=== PATIENT | male | born 1965 | race Caucasian/White ===

== ENCOUNTER 2018-11-11 14:49 | Inpatient (IN) | payer MEDICARE, OTHER ==
[2018-11-11] MEDS ORDERED: SODIUM CHLORIDE 0.9% 1,000 ML IV STA (15:54)
[2018-11-11] MEDS ORDERED: ONDANSETRON ODT 4 MG TAB PO STA (16:24)
[2018-11-11] MEDS ORDERED: LORazepam 2 MG/ML INJ IM STA ×2 (16:25→17:33)
--- NOTE | 2018-11-11 16:28 | ED ---
General Adult HPI - General Chief complaint: Shortness of Breath Stated complaint: Not feeling well Time Seen by Provider: 11/11/18 15:53 Source: patient, family, EMS, Caregiver Mode of arrival: ambulatory Limitations: no limitations - History of Present Illness Initial comments: Dictation was produced using copygram dictation software. please excuse any grammatical, word or spelling errors. Chief Complaint: 53-year-old male with past medical history of down syndrome, irritable bowel syndrome, GERD presents with dyspnea and generalized weakness. History of Present Illness: She is 53-year-old male. He is here today with family members. He has history of Down syndrome. Currently resides with mother however she is not here today because of recent surgery. She is here with her standby guardian. Patient apparently began having symptoms on Sunday. He is having nausea vomiting and diarrhea. He was also found have a fever at that time. Over the following days he is fever improved and his symptoms slightly improved however he still has some diarrhea. Is found to not really been eating very well. Family reports that it's likely secondary to decreased appetite. Patient otherwise is calm. They are concerned because patient is a little bit more less active than usual. Patient is usually very resistant and has a lot of anxiety around strangers however they find that it's abnormal that patient is so comfortable with me. Reports that he has not had any vomiting episodes today. He still however has some mild diarrhea. The ROS documented in this emergency department record has been reviewed and confirmed by me. Those systems with pertinent positive or negative responses have been documented in the HPI. All other systems are other negative and/or noncontributory. PHYSICAL EXAM: General Impression: not in acute distress, alert and playful HEENT: Normocephalic atraumatic, extra-ocular movements intact, chronic defect to the left eye, mucous membranes moist. Cardiovascular: Heart regular rate and rhythm, S1&S2 audible, no murmurs, rubs or gallops Chest: Lungs clear to auscultation bilaterally, no rhonchi, no wheeze, no rales Abdomen: Bowel sounds present, abdomen soft, non-tender, non-distended, no organomegaly Musculoskeletal: Pulses present and equal in all extremities, no peripheral edema Motor: no focal deficits noted Neurological: CN II-XII grossly intact, no focal motor or sensory deficits noted Skin: Intact with no visualized rashes ED course: 53-year-old male past history of down syndrome, GERD, irritable bowel syndrome presents with generalized weakness, fatigue and resolved fever. He does however have some persistent diarrhea. Patient was a program on the weekdays. Scars from an ulcer has not been anyone at the program that has had similar symptoms. Rectal temperature was taken found be one of 103.6.Laboratory evaluation obtained. Patient is leukocytosis of 67.9, hemoglobin 11.1 with platelets of 1022. Metabolic panel was obtained showing mild hyponatremia 135. Rest of labs are grossly unremarkable. X-rays of the chest and abdomen shows patchy consolidation in the right lower lobe. Radiology reported cannot rule out diaphragmatic hernia.. Given these findings CT was obtained showing loculated right-sided hydropneumothorax. Findings were present in by edema. Abdominal ultrasound was obtained given that patient has having right upper quadrant abdominal pain. There is echogenic bile the gallbladder however no signs of acute cholecystitis. No other findings. Patient given broad-spectrum antibiotics. He is given vancomycin and cefepime. Patient required benzodiazepines for sedation because he becomes combative and won't pull out his intravenous lines. Patient hemodynamically stable at this time. Patient given intravenous fluids. There is concern of early sepsis. Discussed patient case with Dr. Ferguson and Dr. Moncada. We will place patient in the intensive care unit because he will need aggressive monitoring given his baseline agitated behavior. EKG interpretation: Ventricular rate 147,. Interval 120, Q 76, QTC 444, sinus tachycardia. No OR prolongation, no QTC prolongation, no ST or T-wave changes noted. - Related Data Home Medications Medication Instructions Recorded Confirmed Acetaminophen Tab [Tylenol Tab] 650 mg PO Q4H PRN 11/11/18 11/11/18 Allergies Allergy/AdvReac Type Severity Reaction Status Date / Time No Known Allergies Allergy Verified 11/11/18 15:31 Review of Systems ROS Statement: Those systems with pertinent positive or pertinent negative responses have been documented in the HPI. ROS Other: All systems not noted in ROS Statement are negative. Past Medical History Past Medical History: GERD/Reflux Additional Past Medical History / Comment(s): IBS History of Any Multi-Drug Resistant Organisms: None Reported Past Surgical History: Hernia Repair Past Psychological History: No Psychological Hx Reported Smoking Status: Never smoker Past Alcohol Use History: None Reported Past Drug Use History: None Reported General Exam Limitations: no limitations Course Vital Signs 11/11/18 11/11/18 11/11/18 16:36 16:56 17:16 Temperature 100.3 F H 103.6 F H Pulse Rate 144 H Respiratory 16 20 Rate Blood Pressure 100/72 O2 Sat by Pulse 85 L Oximetry Medical Decision Making - Lab Data Result diagrams: 11/11/18 17:00 11/11/18 17:00 Lab Results 11/11/18 11/11/18 11/11/18 Range/Units 17:00 17:00 17:00 WBC 67.9 H* (3.8-10.6) k/uL RBC 4.27 L (4.30-5.90) m/uL Hgb 11.1 L (13.0-17.5) gm/dL Hct 35.1 L (39.0-53.0) % MCV 82.3 (80.0-100.0) fL MCH 25.9 (25.0-35.0) pg MCHC 31.4 (31.0-37.0) g/dL RDW 16.4 H (11.5-15.5) % Plt Count 1022 H* (150-450) k/uL Neutrophils % (Manual) 95 % Band Neutrophils % 1 % Lymphocytes % (Manual) 3 % Monocytes % (Manual) 1 % Neutrophils # (Manual) 65.10 H (1.3-7.7) k/uL Lymphocytes # (Manual) 2.04 (1.0-4.8) k/uL Monocytes # (Manual) 0.68 (0-1.0) k/uL Nucleated RBCs 0 (0-0) /100 WBC Hypersegmented Neuts Present Hypochromasia Slight Anisocytosis Slight Target Cells Present Sodium 135 L (137-145) mmol/L Potassium 4.4 (3.5-5.1) mmol/L Chloride 100 (98-107) mmol/L Carbon Dioxide 24 (22-30) mmol/L Anion Gap 11 mmol/L BUN 36 H (9-20) mg/dL Creatinine 0.88 (0.66-1.25) mg/dL Est GFR (CKD-EPI)AfAm >90 (>60 ml/min/1.73 sqM) Est GFR (CKD-EPI)NonAf >90 (>60 ml/min/1.73 sqM) Glucose 136 H (74-99) mg/dL Plasma Lactic Acid Felipe 1.9 (0.7-2.0) mmol/L Calcium 8.0 L (8.4-10.2) mg/dL Total Bilirubin 0.5 (0.2-1.3) mg/dL AST 25 (17-59) U/L ALT 31 (21-72) U/L Alkaline Phosphatase 315 H (38-126) U/L Total Protein 6.7 (6.3-8.2) g/dL Albumin 2.8 L (3.5-5.0) g/dL Lipase 164 (23-300) U/L Disposition Clinical Impression: Empyema lung Disposition: ADMITTED IP TO THIS HOSP Condition: Critical Referrals: Justin Rizvi Jr, [Primary Care Provider] - 1-2 days Decision Time: 20:29
[2018-11-11] MEDS ORDERED: ACETAMINOPHEN TAB 500 MG TAB PO STA (17:12)
[2018-11-11 17:17] LABS: Anisocytosis Slight; HCT 35.1 % (39.0-53.0); HGB 11.1 gm/dL (13.0-17.5); Hypochromasia Slight; MCH 25.9 pg (25.0-35.0); MCHC 31.4 g/dL (31.0-37.0); MCV 82.3 fL (80.0-100.0); Mean Platelet Volume 7.8; RBC 4.27 m/uL (4.30-5.90); RDW 16.4 % (11.5-15.5)
[2018-11-11 17:24] LABS: Platelet Count 1022 k/uL (150-450); WBC 67.9 k/uL (3.8-10.6)
[2018-11-11 17:25] LABS: ALT 31 U/L (21-72); AST 25 U/L (17-59); African American GFR (CKD) >90 (>60 ml/min/1.73 sqM); Albumin 2.8 g/dL (3.5-5.0); Alkaline Phosphatase 315 U/L (38-126); Anion Gap 11 mmol/L; Blood Urea Nitrogen 36 mg/dL (9-20); Carbon Dioxide 24 mmol/L (22-30); Chloride 100 mmol/L (98-107); Glucose 136 mg/dL (74-99); Potassium 4.4 mmol/L (3.5-5.1); Sodium 135 mmol/L (137-145); Total Bilirubin 0.5 mg/dL (0.2-1.3); Total Protein 6.7 g/dL (6.3-8.2)
[2018-11-11 17:38] LABS: Band Neutrophils % 1 %; Lymphocytes # (M) 2.04 k/uL (1.0-4.8); Monocytes # (M) 0.68 k/uL (0-1.0); Neutrophils % (M) 95 %; Nucleated Red Blood Cells 0 /100 WBC (0-0); Total Cells Counted 200
[2018-11-11 17:39] LABS: Hypersegmented Neutrophils Present; Target Cells Present
--- NOTE | 2018-11-11 17:48 | XR ---
EXAMINATION TYPE: XR abdomen acute w cxr DATE OF EXAM: 11/11/2018 COMPARISON: 09/29/2009 HISTORY: Lethargy TECHNIQUE: Supine, upright, and left side down lateral decubitus views of the abdomen are obtained. FINDINGS: There is right pleural effusion and patchy consolidation in the right lower lobe. Left lung is relati vely clear. There is also peritracheal opacity in the right upper lobe. There is no sign of intestinal obstruction or pneumoperitoneum. Fecal pattern is normal. IMPRESSION: Right pleural effusion and right pulmonary consolidation. No acute abnormality seen within the abdome n. Diaphragmatic hernia on the right side is not excluded.
[2018-11-11] MEDS ORDERED: VANCOMYCIN IV PER PHARMACY 1 EACH MISC MISCELLANE PRN (18:24)
[2018-11-11] MEDS ORDERED: MIDAZOLAM (PF) 2 MG/2 ML VIAL IV ONE (18:24)
[2018-11-11] MEDS ORDERED: CEFEPIME 2 GM in SODIUM CHLORIDE 0.9% 100 ML IVPB STA (18:26)
[2018-11-11] MEDS ORDERED: VANCOMYCIN 1,000 MG in SODIUM CHLORIDE 0.9% 250 ML IVPB ONE (18:45)
--- NOTE | 2018-11-11 19:17 | CT ---
EXAMINATION TYPE: CT ChestAbdPelvis w con DATE OF EXAM: 11/11/2018 COMPARISON: None HISTORY: Cough and fever CT DLP: mGycm Automated exposure control for dose reduction was used. CONTRAST: CT scan of the chest, abdomen and pelvis is performed and , patient injected with mL of . The contras t was Isovue 100 mL. FINDINGS: There is a large right-sided loculated pleural effusion. There is extensive consolidation and atelect asis in the right lung. There is air fluid levels in the pleural fluid posteriorly. I do not see a co mmunication with the abdomen to suggest a diaphragmatic hernia. The left lung is fairly clear. Heart size is normal. There is no mediastinal adenopathy. There are no definite hilar masses. Liver spleen stomach appear normal. Bile ducts are not dilated. There is no sign of pancreatic mass. Gallbladder appears normal. There is no adrenal mass. Kidneys show satisfactory contrast opacification. There is no hydronephrosi s. Bladder distends smoothly. There is right inguinal hernia that contains fat. There is no free flui d in the pelvis. There is no sign of a bowel obstruction. There is no evidence of free air. There is no mesenteric edema. There is no ascites. There is no retroperitoneal adenopathy. There are some spon dylotic changes in the thoracic and lumbar spine. I see no compression fracture. I see no bony destru ctive process. IMPRESSION: There is a loculated right-sided hydropneumothorax. Extensive consolidation and atelectas is in the right lung. No evidence of diaphragmatic hernia. This could relate to chronic empyema. Bron chopleural fistula is possible. No acute abnormality within the abdomen pelvis.
--- NOTE | 2018-11-11 20:25 | US ---
EXAMINATION TYPE: US abdomen complete DATE OF EXAM: 11/11/2018 COMPARISON: 09/29/2009 CLINICAL HISTORY: Pain. Pain. Pt unable to give hx. IBS. GERD. EXAM MEASUREMENTS: Liver Length: 16.1 cm Gallbladder Wall: 0.26 cm CBD: 0.48 cm Spleen: 7.7 cm Right Kidney: 9.5 x 5.4 x 4.2 cm Left Kidney: 9.0 x 4.1 x 5.0 cm Very limited study due to constant patient movement. Unable to take and hold breaths in. Unable to stay in position for exam. Pancreas: limited Liver: appears wnl Gallbladder: internal echoes seen in gallbladder Evidence for sonographic Ralph's sign: no CBD: appears wnl Spleen: limited evaluation due to movement Right Kidney: No hydronephrosis or masses seen Left Kidney: limited evaluation Upper IVC: appears wnl Abd Aorta: limited evaluation. Prox aorta appears wnl. There is no sign of ascites. IMPRESSION: There is some echogenic bile in the gallbladder. No dilated ducts. No gallstones seen.
[2018-11-11] MEDS ORDERED: NALOXONE 0.4 MG/ML 1 ML VIAL IV PRN (22:05)
[2018-11-11 23:35] LABS: Glucose,Whole Blood 102 mg/dL (75-99)
[2018-11-11] MEDS: SODIUM CHLORIDE 0.9% 1,000 ML IV SCH (23:43)
[2018-11-12] MEDS: ACETAMINOPHEN TAB 325 MG TAB PO PRN (04:17)
[2018-11-12] MEDS: HEPARIN SODIUM,PORCINE 5,000 UNIT/ML 1 ML VIAL SQ SCH ×3 (04:17→15:06)
[2018-11-12 05:41] LABS: Anisocytosis Slight; Basophils # (A) 0.1 k/uL (0-0.2); Basophils % (A) 0 %; Eosinophils % (A) 0 %; HCT 32.5 % (39.0-53.0); HGB 10.1 gm/dL (13.0-17.5); Hypochromasia Slight; Lymphocytes # (A) 3.5 k/uL (1.0-4.8); Lymphocytes % (A) 6 %; MCH 25.8 pg (25.0-35.0); MCHC 30.9 g/dL (31.0-37.0); MCV 83.6 fL (80.0-100.0); Mean Platelet Volume 7.7; Monocytes # (A) 1.7 k/uL (0-1.0); Monocytes % (A) 3 %; Neutrophils # (A) 54.3 k/uL (1.3-7.7); Neutrophils % (A) 91 %; Platelet Count 981 k/uL (150-450); RBC 3.89 m/uL (4.30-5.90); RDW 16.5 % (11.5-15.5)
[2018-11-12 05:58] LABS: African American GFR (CKD) >90 (>60 ml/min/1.73 sqM); Anion Gap 8 mmol/L; Blood Urea Nitrogen 28 mg/dL (9-20); Carbon Dioxide 25 mmol/L (22-30); Chloride 103 mmol/L (98-107); Glucose 69 mg/dL (74-99); Magnesium 2.7 mg/dL (1.6-2.3); Phosphorus 3.7 mg/dL (2.5-4.5); Sodium 136 mmol/L (137-145)
[2018-11-12 06:43] LABS: Glucose,Whole Blood 96 mg/dL (75-99)
--- NOTE | 2018-11-12 08:02 | P.CNPUL ---
History of Present Illness Consult date: 11/12/18 Reason for consult: pneumonia, pleural effusion History of present illness: This is a 53-year-old male patient, history of Down syndrome, history of autistic behavior, legally blind, resides with his mother and his brother and the patient has a caregiver. The patient also has a legal guardian. The patient has been having increased cough and some low-grade fever over the past 3 weeks. He was also having some nausea, emesis and diarrhea. He is fever was on and off and he had not been eating well. It's hard to obtain any medical information from the patient as the patient is nonverbal. He was apparently noted to be more lethargic and diminished appetite. He came into the emergency department yesterday. He was found to have an extensive consolidation of the right lung suggestive of pneumonia. Following that the patient a CAT scan of the chest that showed a moderate-sized right-sided loculated pleural effusion which was anterior and there is also some loculated pleural effusion posteriorly. There is some air-fluid levels in the pleural fluid posteriorly. There was also extensive consolidation of the right lung with some atelectatic changes in lung bases. No evidence of any diaphragmatic hernia. Empyema was suspected. No evidence of any mediastinal lymphadenopathy with compression fracture. The patient white cell count was at 60 and platelet count was also elevated at thousand 22. Overnight, the patient was given a combination of cefepime and vancomycin. He stayed in the intensive care unit. Unfortunately w as very uncooperative and this is obviously related to his underlying mental disability and the patient has not been wearing his oxygen. He will lay down on his belly. No signs of any significant respiratory distress. He looks still lethargic, uncooperative, and that is he gets agitated and he screams and yells at times. No obvious cough. No hemodynamic instability. He is on IV fluids and received a total of 2 L and currently is on a maintenance of 0.9 at the rate of 80 mL an hour. He is producing urine output. He is incontinent. I talked to the caregiver and I was told that he has a full CODE STATUS which is quite reasonable based on his current situation. In any rate, the patient is currently on broad-spectrum antibiotics. A consultation was placed for interventional radiology and thoracic surgery regarding this loculated pleural effusion. I'm not optimistic that anything surgical to be done for this patient especially with his underlying significant mental disability and inability to cooperate with treatment Review of Systems ROS unobtainable: due to mental status (The patient is unable to communicate. Most of the positive findings were mentioned above. The patient seems to be quite anxious and restless. The patient has obvious mental disability related to his underlying Down syndrome. He has been nonverbal. According to the caregiver has been able to swallow well without any major difficulties. No reported aspiration. No other major medical issues on him. He doesn't take any medications at home. Right) Constitutional: Reports weakness Past Medical History Past Medical History: GERD/Reflux Additional Past Medical History / Comment(s): IBS, Down syndrome, mental retardation/autism, acid reflux, legally blind, previous history of hernia repair History of Any Multi-Drug Resistant Organisms: None Reported Past Surgical History: Hernia Repair Past Anesthesia/Blood Transfusion Reactions: No Reported Reaction Smoking Status: Never smoker - Past Family History Mother Family Medical History: Diabetes Mellitus Father Family Medical History: Cancer Additional Family Medical History / Comment(s): lung cancer Medications and Allergies Home Medications Medication Instructions Recorded Confirmed Type Acetaminophen Tab [Tylenol Tab] 650 mg PO Q4H PRN 11/11/18 11/11/18 History Allergies Allergy/AdvReac Type Severity Reaction Status Date / Time No Known Allergies Allergy Verified 11/11/18 15:31 Physical Exam Vitals: Vital Signs Temp Pulse Resp BP Pulse Ox 11/12/18 07:00 121 H 26 H 96/74 91 L 11/12/18 06:00 99.6 F 125 H 82 H 92/58 90 L 11/12/18 05:00 121 H 28 H 103/62 92 L 11/12/18 04:00 101 F H 120 H 26 H 96/63 95 11/12/18 03:00 121 H 24 135/78 91 L 11/12/18 02:00 126 H 24 93/56 91 L 11/12/18 01:30 112 H 22 101/61 92 L 11/12/18 01:00 111 H 22 105/67 91 L 11/12/18 00:30 113 H 14 98/62 93 L 11/12/18 00:00 98.5 F 110 H 18 102/64 92 L 11/11/18 23:40 111 H 12 102/64 90 L 11/11/18 23:30 107 H 23 97/62 93 L 11/11/18 23:20 111 H 13 108/60 87 L 11/11/18 22:35 110 H 20 101/67 91 L 11/11/18 21:27 100.3 F H 11/11/18 20:49 104 H 16 92/58 90 L 11/11/18 17:16 103.6 F H 11/11/18 16:56 100.3 F H 144 H 20 100/72 85 L 11/11/18 16:36 16 Intake and Output 11/11/18 11/12/18 11/12/18 22:59 06:59 14:59 Intake Total 810 80 Output Total 45 Balance 765 80 Intake: IV 810 80 Sodium Chloride 0.9% 1, 560 80 000 ml @ 80 mls/hr IV . [id number] [facility] Rx#:[id number] Vancomycin 1,000 mg In 250 Sodium Chloride 0.9% 250 ml @ 125 mls/hr IVPB ONCE ONE Rx#:[id number] Output: Urine 45 Other: Voiding Method Incontinent # Voids 1 Weight 58.967 kg 46.6 kg Gen. appearance the patient has typical features of Down syndrome. Unfortunately doesn't state still in bed. He is quite restless. He lays down w ith his belly and a face into the pillow. Unfortunately can't get them today usual sleeping position on his back. The patient has been unable to keep his oxygen mask or nasal cannula. Head exam was generally normal. There was no scleral icterus or corneal arcus. Mucous membranes were moist. The patient has typical Down's features. Neck was supple and without jugular venous distension, thyromegaly, or carotid bruits. Carotids were easily palpable bilaterally. There was no adenopathy. The patient has a Mallampati class IV. Mucous membranes are relatively dry. Lungs are diminished bilaterally right more than left. No significant rhonchi or wheeze at this point in time. Breath sounds are quite diminished. Cardiac exam revealed the PMI to be normally situated and sized. The rhythm was regular and no extrasystoles were noted during several minutes of auscultation. The first and second heart sounds were normal and physiologic splitting of the second heart sound was noted. There were no murmurs, rubs, clicks, or gallops. Abdominal exam revealed normal bowel sounds. The abdomen was soft, non-tender, and without masses, organomegaly, or appreciable enlargement of the abdominal aorta. Extremities revealed tiny hands and feet. The skin and scaly. Pulses are diminished at the present all 4 extremities. No open wounds or sores. No cyanosis. No clubbing. Neurologically, the patient is moving all 4 extremities. There is mental retardation related to history of Down syndrome. Results - Laboratory Findings CBC and BMP: 11/12/18 04:34 11/12/18 04:34 Abnormal lab findings: Abnormal Labs 11/11/18 11/11/18 11/11/18 17:00 17:00 23:33 WBC 67.9 H* RBC 4.27 L Hgb 11.1 L Hct 35.1 L MCHC RDW 16.4 H Plt Count 1022 H* Neutrophils # Neutrophils # (Manual) 65.10 H Monocytes # Sodium 135 L BUN 36 H Glucose 136 H POC Glucose (mg/dL) 102 H Calcium 8.0 L Magnesium Alkaline Phosphatase 315 H Albumin 2.8 L 11/12/18 11/12/18 04:34 04:34 WBC 60.0 H* RBC 3.89 L Hgb 10.1 L Hct 32.5 L MCHC 30.9 L RDW 16.5 H Plt Count 981 H Neutrophils # 54.3 H Neutrophils # (Manual) Monocytes # 1.7 H Sodium 136 L BUN 28 H Glucose 69 L POC Glucose (mg/dL) Calcium 8.0 L Magnesium 2.7 H Alkaline Phosphatase Albumin - Diagnostic Findings Chest x-ray: image reviewed CT scan - chest: image reviewed Assessment and Plan Plan: 1 extensive right lung pneumonia with a complicated parapneumonic effusion/early empyema. The patient has loculated pleural fluid anteriorly and posteriorly and the fluid collections are not communicating. Also, there may be some air-fluid level formation posteriorly. Consider aspiration. Consider gram-negative pneumonia. Consider pneumococcal pneumonia. 2 acute hypoxic respiratory failure secondary to above. The patient refuses to wear oxygen supplementation 3 acute leukocytosis secondary to above 4 acute thrombocytosis secondary to above 5 Down syndrome 6 mental retardation 7 episodic fever secondary to above 8 diminished level of consciousness secondary to above 9. Legal blindness with cataracts in both eyes 10 full CODE STATUS with a presence of a legal guardian and a caregiver. Plan This is a complicated situation. Taking care of this patient is to be quite complicated as the patient does not follow any commands and is quite restless and uncooperative declined to wear any oxygen and pulls on lines and tubings. He'll be given Ativan on a when necessary basis to control his restlessness and agitation. Meanwhile, we'll keep him and accommodation Zosyn and vancomycin. We'll discuss the findings with thoracic surgery and interventional radiology. Obviously the patient is a poor candidate for any surgical intervention regarding this loculated pleural effusion. Another option would be doing a percutaneous drainage of the pleural fluid specially the 1 is collecting anteriorly over the anterior right chest and analyze the fluid and see if there is any possible any other bacterial growth. High likelihood that this is a complicated parapneumonic effusion/empyema. Continue IV fluids at the rate of 80 mL an hour. Ativan on a when necessary basis. Heparin subcu for DVT prophylaxis. We will allow some soft diet today and watch his feeding patterns. We'll discuss with a guardian and try to establish mucosal status of the patient is not a good candidate for intubation, or any form of long-term mechanical ventilation if needed. We'll monitor the white count. We'll monitor the platelet counts. Tylenol for fever. We'll continue to follow.
[2018-11-12] MEDS: PIPERACILLIN-TAZOBACTAM 3.375 GM in SODIUM CHLORIDE 0.9% 100 ML IVPB SCH ×2 (08:35→15:07)
[2018-11-12] MEDS: LORazepam 2 MG/ML INJ IV PRN ×4 (08:35→21:44)
[2018-11-12] MEDS: PANTOPRAZOLE 40 MG/10 ML VIAL IV SCH (08:35)
--- NOTE | 2018-11-12 09:46 | XR ---
EXAMINATION TYPE: XR chest 1V DATE OF EXAM: 11/12/2018 COMPARISON: CT of the chest abdomen and pelvis dated 11/11/2018 HISTORY: Empyema TECHNIQUE: Single frontal view of the chest is obtained. FINDINGS: Redemonstration of multiloculated moderate right pleural effusion and pneumothorax with co nsolidative process in the right middle and lower lobes. A few strandy densities at the left lung bas e may related to atelectasis or infiltrate. Cardiac silhouette is normal in size. No left-sided pneum othorax. Osseous structures appear grossly intact. IMPRESSION: Redemonstration of left-sided hydropneumothorax appearing similar to CT of the chest barbara ed 11/11/2018. Right middle lower lobe consolidation likely related to pneumonia. Left basilar opacities may be related to atelectasis or infiltrate.
[2018-11-12] MEDS: VANCOMYCIN 1,000 MG in SODIUM CHLORIDE 0.9% 250 ML IVPB SCH ×2 (10:26→22:09)
[2018-11-12] MEDS ORDERED: MIDAZOLAM 2 MG/2 ML VIAL ONE (10:28)
[2018-11-12] MEDS ORDERED: KETAMINE 10 MG/ML 20 ML VIAL ONE (10:28)
[2018-11-12 10:31] LABS: Total Protein 6.3 g/dL (6.3-8.2)
[2018-11-12] MEDS: SODIUM CHLORIDE 0.9% 1,000 ML IV SCH (11:33)
--- NOTE | 2018-11-12 11:39 | US ---
Ultrasound thoracentesis HISTORY: Loculated pleural effusion, leukocytosis Maximal barrier technique is utilized. Ultrasound was used to sterile technique. Ultrasound images (3 )obtained verifying use. Correlation to CT chest 11/11/2018 Anterior right chest was evaluated with ultrasound, loculated fluid collection is identified. The ski n overlying a suitable path to the fluid was localized and the overlying skin prepped and draped. Lid ocaine used for local anesthesia. 21-gauge was advanced under direct ultrasound guidance into the flu id collection. Minimal fluid obtained. Second pass was performed, total approximately 2 cc of serous fluid obtained and submitted for laboratory analysis. Following the procedure hemostasis achieved. No immediate complication. Patient remained in stable condition. Post procedure chest x-rays pending. P ulysses remained in the care of anesthesia during the procedure. IMPRESSION: Status post ultrasound guided thoracentesis for diagnostic purposes. This procedure perfo rmed by the undersigned. Loculated pleural effusion.
--- NOTE | 2018-11-12 12:58 | XR ---
EXAMINATION TYPE: XR chest 1V portable DATE OF EXAM: 11/12/2018 COMPARISON: Prior chest x-ray 11/12/2018 and earlier time HISTORY: Post right thoracentesis TECHNIQUE: Single frontal view of the chest is obtained. FINDINGS: No interval change. IMPRESSION: No evident complication status post thoracentesis on the right, in patient's loculated r ight pleural effusion
[2018-11-12 14:03] LABS: Appearance,BF Hazy; Color,BF Yellow; Nucleated Cells, Body Fluid 540 /uL
[2018-11-12 14:04] LABS: RBC, Body Fluid 3490 /uL
[2018-11-12 14:10] LABS: Mononuclear WBC,Body Fluid 4 %; Polynuclear WBC,Body Fluid 96 %; Total Cells Counted,Body Fluid 100
[2018-11-12 15:47] LABS: Appearance,Urine Turbid (Clear); Bacteria,Urine Rare /hpf; Bilirubin,Urine Negative (Negative); Blood,Urine Negative (Negative); Color,Urine Yellow; Glucose,Urine (UA) Negative (Negative); Ketones,Urine Negative (Negative); Leukocyte Esterase,Urine Negative (Negative); Mucus,Urine Rare /hpf; Nitrite,Urine Negative (Negative); PH, Urine 5.5 (5.0-8.0); Protein,Urine Trace (Negative); Specific Gravity,Urine 1.031 (1.001-1.035); Uric Acid Crystals,Urine Many /hpf; Urobilinogen,Urine <2.0 mg/dL (<2.0)
--- NOTE | 2018-11-12 16:22 | P.HPIM ---
History of Present Illness H&P Date: 11/12/18 Chief Complaint: Pneumonia, This is the 53-year-old gentleman with autism/Down syndrome, legally blind presented to the ER with increased lethargy,dyspnea, increased cough, nausea vomiting, diarrhea, reported fevers, not eating well, right upper quadrant abdominal pain for about the last 3 weeks. No reported aspiration. T-max 101, WBC 60, platelets 1022, hemoglobin 11.1, alk phos 315. Abdominal series reported no intestinal obstruction or pneumoperitoneum, normal fecal pattern, right pleural effusion, right pulmonary consolidation, possible right sided diaphragmatic hernia. Abdominal ultrasound limited study, reported echogenic bile with no dilated ducts, no gallstones . 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 EKG reported sinus tachycardia. Chest x-ray reports redemonstration of left-sided hydropneumothorax,Similar to CT, right middle lower lobe consolidation likely related to pneumonia, left basilar opacity possibly related to atelectasis or infiltrate. Initiated on IV fluids, vancomycin and cefepime. Unable to keep oxygen on, currently maintaining O2 sats in the low 90s on room air. Ativan administered for anxiety/agitation. Admitted to ICU. If the patient is being obtained from staff, chart as patient nonverbal. Pulmonary and interventional radiology consulted. Review of Systems ROS ;Unable to obtain secondary to patient's mental status, nonverbal, autistic, anxious. Past Medical History Past Medical History: GERD/Reflux Additional Past Medical History / Comment(s): IBS History of Any Multi-Drug Resistant Organisms: None Reported Past Surgical History: Hernia Repair Past Anesthesia/Blood Transfusion Reactions: No Reported Reaction Smoking Status: Never smoker - Past Family History Mother Family Medical History: Diabetes Mellitus Father Family Medical History: Cancer Additional Family Medical History / Comment(s): lung cancer Medications and Allergies Home Medications Medication Instructions Recorded Confirmed Type Acetaminophen Tab [Tylenol Tab] 650 mg PO Q4H PRN 11/11/18 11/11/18 History Allergies Allergy/AdvReac Type Severity Reaction Status Date / Time No Known Allergies Allergy Verified 11/11/18 15:31 Physical Exam Vitals: Vital Signs Temp Pulse Resp BP Pulse Ox 11/12/18 07:00 121 H 26 H 96/74 91 L 11/12/18 06:00 99.6 F 125 H 82 H 92/58 90 L 11/12/18 05:00 121 H 28 H 103/62 92 L 11/12/18 04:00 101 F H 120 H 26 H 96/63 95 11/12/18 03:00 121 H 24 135/78 91 L 11/12/18 02:00 126 H 24 93/56 91 L 11/12/18 01:30 112 H 22 101/61 92 L 11/12/18 01:00 111 H 22 105/67 91 L 11/12/18 00:30 113 H 14 98/62 93 L 11/12/18 00:00 98.5 F 110 H 18 102/64 92 L 11/11/18 23:40 111 H 12 102/64 90 L 11/11/18 23:30 107 H 23 97/62 93 L 11/11/18 23:20 111 H 13 108/60 87 L 11/11/18 22:35 110 H 20 101/67 91 L 11/11/18 21:27 100.3 F H 11/11/18 20:49 104 H 16 92/58 90 L 11/11/18 17:16 103.6 F H 11/11/18 16:56 100.3 F H 144 H 20 100/72 85 L 11/11/18 16:36 16 Intake and Output 11/11/18 11/12/18 11/12/18 22:59 06:59 14:59 Intake Total 810 80 Output Total 45 Balance 765 80 Intake: IV 810 80 Sodium Chloride 0.9% 1, 560 80 000 ml @ 80 mls/hr IV . [id number] [facility] Rx#:[id number] Vancomycin 1,000 mg In 250 Sodium Chloride 0.9% 250 ml @ 125 mls/hr IVPB ONCE ONE Rx#:[id number] Output: Urine 45 Other: Voiding Method Incontinent # Voids 1 Weight 58.967 kg 46.6 kg PHYSICAL EXAM: VITAL SIGNS: As above GENERAL: 53-year-old gentleman with Down syndrome ,Sitting up in bed, alert, restless, face. Face burried into pillow, unable to keep his oxygen on. HEENT: Conjunctivae normal. No scleral icterus. Mucous membranes moist NECK: Supple, No JVD. No thyroid enlargement. No LNs, no adenopathy CARDIOVASCULAR: S1, S2 regular. No murmur RESPIRATION: Breath sounds diminished in the bases, right greater than left. No rhonchi or crackles. No wheezing. ABDOMEN: Soft, nontender . No guarding. no masses palpable. Bowel sounds heard. LEGS: Dry, scaly, No edema. no swelling, no cyanosis, no clubbing,pulses diminished. PSYCHIATRY: Alert and oriented X3, mood and affect normal. NERVOUS SYSTEM: Down syndrome, moving all 4 extremities Skin: no lesions, no rash Results CBC & Chem 7: 11/12/18 04:34 11/12/18 04:34 Labs: Abnormal Lab Results - Last 24 Hours (Table) 11/11/18 11/11/18 11/11/18 Range/Units 17:00 17:00 23:33 WBC 67.9 H* (3.8-10.6) k/uL RBC 4.27 L (4.30-5.90) m/uL Hgb 11.1 L (13.0-17.5) gm/dL Hct 35.1 L (39.0-53.0) % MCHC (31.0-37.0) g/dL RDW 16.4 H (11.5-15.5) % Plt Count 1022 H* (150-450) k/uL Neutrophils # (1.3-7.7) k/uL Neutrophils # (Manual) 65.10 H (1.3-7.7) k/uL Monocytes # (0-1.0) k/uL Sodium 135 L (137-145) mmol/L BUN 36 H (9-20) mg/dL Glucose 136 H (74-99) mg/dL POC Glucose (mg/dL) 102 H (75-99) mg/dL Calcium 8.0 L (8.4-10.2) mg/dL Magnesium (1.6-2.3) mg/dL Alkaline Phosphatase 315 H (38-126) U/L Albumin 2.8 L (3.5-5.0) g/dL 11/12/18 11/12/18 Range/Units 04:34 04:34 WBC 60.0 H* (3.8-10.6) k/uL RBC 3.89 L (4.30-5.90) m/uL Hgb 10.1 L (13.0-17.5) gm/dL Hct 32.5 L (39.0-53.0) % MCHC 30.9 L (31.0-37.0) g/dL RDW 16.5 H (11.5-15.5) % Plt Count 981 H (150-450) k/uL Neutrophils # 54.3 H (1.3-7.7) k/uL Neutrophils # (Manual) (1.3-7.7) k/uL Monocytes # 1.7 H (0-1.0) k/uL Sodium 136 L (137-145) mmol/L BUN 28 H (9-20) mg/dL Glucose 69 L (74-99) mg/dL POC Glucose (mg/dL) (75-99) mg/dL Calcium 8.0 L (8.4-10.2) mg/dL Magnesium 2.7 H (1.6-2.3) mg/dL Alkaline Phosphatase (38-126) U/L Albumin (3.5-5.0) g/dL Thrombosis Risk Factor Assmnt - Choose All That Apply Each Factor Represents 1 point: Age 41-60 years, Hx of IBD, Serious lung disease incl. pneumonia (< 1month) Other Risk Factors: No Other congenital or acquired thrombophilia - If yes, enter type in comment: No Thrombosis Risk Factor Assessment Total Risk Factor Score: 3 Thrombosis Risk Factor Assessment Level: Moderate Risk Assessment and Plan Assessment: -Extensive right lung pneumonia, parapneumonic effusion, empyema,loculated right-sided hydropneumothorax. Possible aspiration, possible gram-negative pneumonia, possible parapneumonic -Acute hypoxic respiratory failure secondary to the above -Fevers, change in mental status, acute metabolic encephalopathy, secondary to the above -Leukocytosis secondary to the above -Thrombocytosis secondary to the above -Down syndrome, autistism -Legally blind -IBS -Gastroesophageal reflux disease -History of hernia repair Plan: Continue on current medication regime ,monitoring and symptomatic treatment. Maintain IV fluid hydration and IV antibiotics of Zosyn and vanco mycin. Cultures ordered/ pending.Tylenol for pain and fever. Strict aspiration precautions. Heparin subcu for DVT prophylaxis. Interventional radiology consulted, recommendations pending. Close monitoring of coag's. Patient has a legal guardian. The impression and plan of care has been dictated as directed. : I performed a history and examination of this patient, discussed the same with the dictator. I agree with the dictator's note ,documented as a scribe. Any additional findings or plans will be noted. Time taken: 35 minutes
[2018-11-12] MEDS ORDERED: HALOPERIDOL LACTATE 5 MG/ML 1 ML VIAL IVP PRN (17:20)
[2018-11-12] MEDS ORDERED: methylPREDNISolone SOD SUCCI 125 MG/2 ML VIAL IV STA (20:41)
[2018-11-12] MEDS: IPRATROPIUM-ALBUTEROL 3 ML NEB INHALATION SCH (20:54)
[2018-11-13] MEDS: PIPERACILLIN-TAZOBACTAM 3.375 GM in SODIUM CHLORIDE 0.9% 100 ML IVPB SCH ×3 (00:42→17:20)
[2018-11-13] MEDS: HEPARIN SODIUM,PORCINE 5,000 UNIT/ML 1 ML VIAL SQ SCH ×3 (00:43→17:14)
[2018-11-13] MEDS: SODIUM CHLORIDE 0.9% 1,000 ML IV SCH ×2 (05:04→19:09)
[2018-11-13] MEDS ORDERED: VANCOMYCIN TROUGH DUE 1 EACH MISC MISCELLANE ONE (08:00)
[2018-11-13 08:09] LABS: Anisocytosis Slight; HCT 30.1 % (39.0-53.0); HGB 8.9 gm/dL (13.0-17.5); Hypochromasia Marked; MCH 25.3 pg (25.0-35.0); MCHC 29.7 g/dL (31.0-37.0); MCV 85.1 fL (80.0-100.0); Platelet Count 892 k/uL (150-450); Poikilocytosis Slight; RBC 3.54 m/uL (4.30-5.90); RDW 16.2 % (11.5-15.5)
[2018-11-13 08:17] LABS: African American GFR (CKD) >90 (>60 ml/min/1.73 sqM); Anion Gap 8 mmol/L; Blood Urea Nitrogen 19 mg/dL (9-20); Calcium 7.3 mg/dL (8.4-10.2); Carbon Dioxide 23 mmol/L (22-30); Chloride 111 mmol/L (98-107); Glucose 150 mg/dL (74-99); Potassium 4.5 mmol/L (3.5-5.1); Sodium 142 mmol/L (137-145)
[2018-11-13 08:24] LABS: Lymphocytes # (M) 2.82 k/uL (1.0-4.8); Monocytes # (M) 1.41 k/uL (0-1.0); Neutrophils % (M) 92 %; Nucleated Red Blood Cells 0 /100 WBC (0-0); Total Cells Counted 200
[2018-11-13 08:25] LABS: Large Platelets Present
[2018-11-13] MEDS: IPRATROPIUM-ALBUTEROL 3 ML NEB INHALATION SCH ×4 (08:31→20:00)
--- NOTE | 2018-11-13 08:53 | XR ---
EXAMINATION TYPE: XR chest 1V DATE OF EXAM: 11/13/2018 COMPARISON: 11/12/2018 HISTORY: Empyema TECHNIQUE: Single frontal view of the chest is obtained. FINDINGS: Mild improvement in aeration of the right lung with multiloculated pneumothorax in the inf erior and medial right lower lung zone. Persistent consolidation in the mid and right lower lung. Los s of the right hemidiaphragm. Loculated pleural fluid is again seen along the medial right upper lung zone. Strandy and patchy densities are again seen at the left lung base. Cardiac silhouette and pulm onary vascularity are within normal limits. Osseous structures are grossly intact. IMPRESSION: Mildly improving aeration in the right lung, which may be related to recent thoracentesis. However, t here remains consolidation and hydropneumothorax in the right chest which was demonstrated on CT date d 11/11/2018. Left basilar opacities may be related to atelectasis or infiltrate.
[2018-11-13] MEDS: PANTOPRAZOLE 40 MG/10 ML VIAL IV SCH (09:27)
[2018-11-13] MEDS: VANCOMYCIN 1,000 MG in SODIUM CHLORIDE 0.9% 250 ML IVPB SCH ×2 (09:54→17:19)
--- NOTE | 2018-11-13 14:18 | P.PN ---
Subjective Progress Note Date: 11/13/18 This is the 53-year-old gentleman with autism/Down syndrome, legally blind presented to the ER with increased lethargy,dyspnea, increased cough, nausea vomiting, diarrhea, reported fevers, not eating well, right upper quadrant abdominal pain for about the last 3 weeks. No reported aspiration. T-max 101, WB C 60, platelets 1022, hemoglobin 11.1, alk phos 315. Abdominal series reported no intestinal obstruction or pneumoperitoneum, normal fecal pattern, right pleural effusion, right pulmonary consolidation, possible right sided diaphragmatic hernia. Abdominal ultrasound limited study, reported echogenic bile with no dilated ducts, no gallstones . 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 EKG reported sinus tachycardia. Chest x-ray reports redemonstration of left-sided hydropneumothorax,Similar to CT, right middle lower lobe consolidation likely related to pneumonia, left basilar opacity possibly related to atelectasis or infiltrate. Initiated on IV fluids, vancomycin and cefepime. Unable to keep oxygen on, currently maintaining O2 sats in the low 90s on room air. Ativan administered for anxiety/agitation. Admitted to ICU. If the patient is being obtained from staff, chart as patient nonverbal. Pulmonary and interventional radiology consulted. 11/13/2018 Yesterday underwent diagnostic ultrasound-guided thoracentesis, minimal fluid obtained, cultures sent/pending. Tolerated procedure well. Maintained on vancomycin and Zosyn, currently afebrile, T-max 100, WBC decreased to 47. Respiratory rate with significant coughing spells, followed by agitation, which have improved this morning. Chest x-ray this morning reporting mild improving aeration of the right lung, right chest consolidation / hydropneumothorax persists, and left basilar opacities, possible atelectasis versus infiltrate. Hemoglobin 8.9. Desats with pulling off mask.Caregiver at bedside around the clock, attempting to facilitate patient receiving O2 via nonrebreather, maintaining sats in the low 90s. Less tachycardic today. More calm this morning, eating well without difficulty. No nausea vomiting or diarrhea. Objective - Vital Signs Vital signs: Vital Signs Temp 97.9 F 11/13/18 06:12 Pulse 98 11/13/18 08:44 Resp 26 H 11/13/18 07:00 BP 124/79 11/13/18 07:00 Pulse Ox 98 11/13/18 07:00 Intake & Output 11/12/18 11/13/18 11/13/18 18:59 06:59 18:59 Intake Total 1385 1335 80 Balance 1385 1335 80 Weight 44.6 kg Intake: IV 1385 1335 80 Piperacillin-Tazobactam 3 175 125 .375 gm In Sodium Chloride 0.9% 100 ml @ 25 mls/hr IVPB Q8HR [facility] Rx# :[id number] Sodium Chloride 0.9% 1, 960 960 80 000 ml @ 80 mls/hr IV . [id number] [facility] Rx#:[id number] Vancomycin 1,000 mg In 250 250 Sodium Chloride 0.9% 250 ml @ 125 mls/hr IVPB ONCE ONE Rx#:[id number] Other: Voiding Method Incontinent Incontinent # Voids 1 1 - Exam VITAL SIGNS: As above GENERAL: 53-year-old gentleman with Down syndrome ,Sitting up in bed, alert, restless, face. Face burried into pillow, unable to keep his oxygen on. HEENT: Conjunctivae normal. No scleral icterus. Mucous membranes moist NECK: Supple, No JVD. No thyroid enlargement. No LNs, no adenopathy CARDIOVASCULAR: S1, S2 regular. No murmur RESPIRATION: Breath sounds diminished in the bases, right greater than left. No rhonchi or crackles. No wheezing. ABDOMEN: Soft, nontender . No guarding. no masses palpable. Bowel sounds heard. LEGS: Dry, scaly, No edema. no swelling, no cyanosis, no clubbing,pulses diminished. PSYCHIATRY: Alert and oriented X3, mood and affect normal. NERVOUS SYSTEM: Down syndrome, moving all 4 extremities Skin: no lesions, no rash Microbiology 11/12/18 11:01 Pleural Fluid Gram Stain - Preliminary 11/12/18 11:01 Pleural Fluid Body Fluid Culture - Preliminary 11/11/18 18:15 Blood Blood Culture - Preliminary No Growth after 24 hours 11/12/18 11:01 Pleural Fluid Anaerobic Culture - Preliminary - Labs CBC & Chem 7: 11/13/18 07:40 11/13/18 07:40 Labs: Abnormal Lab Results - Last 24 Hours (Table) 11/12/18 11/12/18 11/13/18 Range/Units 04:34 14:10 07:40 WBC 47.0 H (3.8-10.6) k/uL RBC 3.54 L (4.30-5.90) m/uL Hgb 8.9 L (13.0-17.5) gm/dL Hct 30.1 L (39.0-53.0) % MCHC 29.7 L (31.0-37.0) g/dL RDW 16.2 H (11.5-15.5) % Plt Count 892 H (150-450) k/uL Neutrophils # (Manual) 43.24 H (1.3-7.7) k/uL Monocytes # (Manual) 1.41 H (0-1.0) k/uL Chloride (98-107) mmol/L Glucose (74-99) mg/dL Calcium (8.4-10.2) mg/dL Lactate Dehydrogenase 657 H (313-618) U/L Urine Protein Trace H (Negative) Uric Acid Crystals Many H (None) /hpf Urine Bacteria Rare H (None) /hpf Urine Mucus Rare H (None) /hpf 11/13/18 Range/Units 07:40 WBC (3.8-10.6) k/uL RBC (4.30-5.90) m/uL Hgb (13.0-17.5) gm/dL Hct (39.0-53.0) % MCHC (31.0-37.0) g/dL RDW (11.5-15.5) % Plt Count (150-450) k/uL Neutrophils # (Manual) (1.3-7.7) k/uL Monocytes # (Manual) (0-1.0) k/uL Chloride 111 H (98-107) mmol/L Glucose 150 H (74-99) mg/dL Calcium 7.3 L (8.4-10.2) mg/dL Lactate Dehydrogenase (313-618) U/L Urine Protein (Negative) Uric Acid Crystals (None) /hpf Urine Bacteria (None) /hpf Urine Mucus (None) /hpf Microbiology - Last 24 Hours (Table) 11/12/18 11:01 Gram Stain - Preliminary Pleural Fluid Body Fluid Culture - Preliminary 11/11/18 18:15 Blood Culture - Preliminary Blood No Growth after 24 hours 11/12/18 11:01 Anaerobic Culture - Preliminary Pleural Fluid Assessment and Plan Assessment: -Extensive right lung pneumonia, parapneumonic effusion, empyema,loculated right-sided hydropneumothorax. Possible aspiration, possible gram-negative pneumonia, possible parapneumonic -Acute hypoxic respiratory failure secondary to the above -Fevers, change in mental status, acute metabolic encephalopathy, secondary to the above -Leukocytosis secondary to the above -Thrombocytosis secondary to the above -Down syndrome, autistism -Legally blind -IBS -Gastroesophageal reflux disease -History of hernia repair Plan: Continue on current medication regime ,monitoring and symptomatic treatment. Continue on IV antibiotics of vancomycin, Zosyn. Maintain IV fluid hydration. Cultures pending. Strict aspiration precautions. Follow closely with public health epidemiologist. The impression and plan of care has been dictated as directed. : I performed a history and examination of this patient, discussed the same with the dictator. I agree with the dictator's note ,documented as a scribe. Any additional findings or plans will be noted. Time taken: 35 minutes
--- NOTE | 2018-11-13 16:24 | P.PN ---
Subjective Progress Note Date: 11/13/18 This is a 53-year-old male patient, history of Down syndrome, history of autistic behavior, legally blind, resides with his mother and his brother and the patient has a caregiver. The patient also has a legal guardian. The patient has been having increased cough and some low-grade fever over the past 3 weeks. He was also having some nausea, emesis and diarrhea. He is fever was on and off and he had not been eating well. It's hard to obtain any medical information from the patient as the patient is nonverbal. He was apparently noted to be more lethargic and diminished appetite. He came into the emergency department yesterday. He was found to have an extensive consolidation of the right lung suggestive of pneumonia. Following that the patient a CAT scan of the chest that showed a moderate-sized right-sided loculated pleural effusion which was anterior and there is also some loculated pleural effusion posteriorly. There is some air-fluid levels in the pleural fluid posteriorly. There was also extensive consolidation of the right lung with some atelectatic changes in lung bases. No evidence of any diaphragmatic hernia. Empyema was suspected. No evidence of any mediastinal lymphadenopathy with compression fracture. The patient white cell count was at 60 and platelet count was also elevated at thousand 22. Overnight, the patient was given a combination of cefepime and vancomycin. He stayed in the intensive care unit. Unfortunately was very uncooperative and this is obviously related to his underlying mental disability and the patient has not been wearing his oxygen. He will lay down on his belly. No signs of any significant respiratory distress. He looks still l ethargic, uncooperative, and that is he gets agitated and he screams and yells at times. No obvious cough. No hemodynamic instability. He is on IV fluids and received a total of 2 L and currently is on a maintenance of 0.9 at the rate of 80 mL an hour. He is producing urine output. He is incontinent. I talked to the caregiver and I was told that he has a full CODE STATUS which is quite reasonable based on his current situation. In any rate, the patient is currently on broad-spectrum antibiotics. A consultation was placed for interventional radiology and thoracic surgery regarding this loculated pleural effusion. I'm not optimistic that anything surgical to be done for this patient especially with his underlying significant mental disability and inability to cooperate with treatment On 11/13/2018 I'm seeing this patient for a follow-up. The patient had a limited thoracentesis yesterday with a small amount of pleural fluid was aspirated from the right lung without any complication. Cultures are still pending for now. The fluid itself was none purulent was status. The patient remains on examination of Zosyn and vancomycin. He remains quite uncooperative and his restless and overnight he had difficulties maintaining his oxygen mask on. Based on that, the patient was given a combination of Ativan and Haldol. This morning he is much more comfortable and he is back to his usual position with his back flexed and he is essentially laying down on his chest. He is josh athing comfortably. His white cell count has dropped considerably from 60 down to 47. Cultures of been negative thus far. Is afebrile. He has taken some minimal amount of foods. Caregivers at the bedside. The patient meanwhile was switched to a DNR/DNI CODE STATUS after length discussion took place along with the family and the caregivers. Objective - Vital Signs Vital signs: Vital Signs Temp 97.6 F 11/13/18 12:00 Pulse 84 11/13/18 14:00 Resp 22 11/13/18 14:00 BP 96/61 11/13/18 14:00 Pulse Ox 94 L 11/13/18 14:00 Intake & Output 11/12/18 11/13/18 11/13/18 18:59 06:59 18:59 Intake Total 1385 1335 1220 Output Total 45 Balance 1385 1335 1175 Weight 44.6 kg Intake: IV 1385 1335 1070 Piperacillin-Tazobactam 3 175 125 100 .375 gm In Sodium Chloride 0.9% 100 ml @ 25 mls/hr IVPB Q8HR [facility] Rx# :[id number] Sodium Chloride 0.9% 1, 960 960 720 000 ml @ 80 mls/hr IV . [id number] [facility] Rx#:[id number] Vancomycin 1,000 mg In 250 250 Sodium Chloride 0.9% 250 ml @ 125 mls/hr IVPB ONCE ONE Rx#:[id number] Vancomycin 1,000 mg In 250 Sodium Chloride 0.9% 250 ml @ 125 mls/hr IVPB Q12H [facility] Rx#:[id number] Oral 150 Output: Urine 45 Other: Voiding Method Incontinent Incontinent Incontinent # Voids 1 1 1 - Exam Gen. appearance the patient has typical features of Down syndrome. Unfortunately doesn't state still in bed. He is quite restless. He lays down with his belly and a face into the pillow. Unfortunately can't get them today usual sleeping position on his back. The patient has been unable to keep his oxygen mask or nasal cannula. Head exam was generally normal. There was no scleral icterus or corneal arcus. Mucous membranes were moist. The patient has typical Down's features. Neck was supple and without jugular venous distension, thyromegaly, or carotid bruits. Carotids were easily palpable bilaterally. There was no adenopathy. The patient has a Mallampati class IV. Mucous membranes are relatively dry. Lungs are diminished bilaterally right more than left. No significant rhonchi or wheeze at this point in time. Breath sounds are quite diminished. Cardiac exam revealed the PMI to be normally situated and sized. The rhythm was regular and no extrasystoles were noted during several minutes of auscultation. The first and second heart sounds were normal and physiologic splitting of the second heart sound was noted. There were no murmurs, rubs, clicks, or gallops. Abdominal exam revealed normal bowel sounds. The abdomen was soft, non-tender, and without masses, organomegaly, or appreciable enlargement of the abdominal aorta. Extremities revealed tiny hands and feet. The skin and scaly. Pulses are diminished at the present all 4 extremities. No open wounds or sores. No cyanosis. No clubbing. Neurologically, the patient is moving all 4 extremities. There is mental retardation related to history of Down syndrome. - Labs CBC & Chem 7: 11/13/18 07:40 11/13/18 07:40 Labs: Abnormal Lab Results - Last 24 Hours (Table) 11/13/18 11/13/18 Range/Units 07:40 07:40 WBC 47.0 H (3.8-10.6) k/uL RBC 3.54 L (4.30-5.90) m/uL Hgb 8.9 L (13.0-17.5) gm/dL Hct 30.1 L (39.0-53.0) % MCHC 29.7 L (31.0-37.0) g/dL RDW 16.2 H (11.5-15.5) % Plt Count 892 H (150-450) k/uL Neutrophils # (Manual) 43.24 H (1.3-7.7) k/uL Monocytes # (Manual) 1.41 H (0-1.0) k/uL Chloride 111 H (98-107) mmol/L Glucose 150 H (74-99) mg/dL Calcium 7.3 L (8.4-10.2) mg/dL Microbiology - Last 24 Hours (Table) 11/12/18 11:01 Anaerobic Culture - Preliminary Pleural Fluid 11/12/18 11:01 Gram Stain - Preliminary Pleural Fluid Body Fluid Culture - Preliminary 11/11/18 18:15 Blood Culture - Preliminary Blood No Growth after 24 hours Assessment and Plan Plan: 1 extensive right lung pneumonia with a complicated parapneumonic effusion/early empyema. The patient has loculated pleural fluid anteriorly and posteriorly and the fluid collections are not communicating. Also, there may be some air-fluid level formation posteriorly. Consider aspiration. Consider gram-negative pneumonia. Consider pneumococcal pneumonia. The patient underwent a limited thoracentesis on the fluid culture are still pending for now. The fluid itself was serous and the fluid chemistry still pending for now. Meanwhile, the patient's chest x-ray still showing extensive consolidation and loculated pleural effusion on the right. The patient is on accommodation Zosyn and vancomycin. 2 acute hypoxic respiratory failure secondary to above. The patient refuses to wear oxygen supplementation 3 acute leukocytosis secondary to above, improving and the white cell count is down to 47 4 acute thrombocytosis secondary to above 5 Down syndrome 6 mental retardation 7 episodic fever secondary to above 8 diminished level of consciousness secondary to above 9. Legal blindness with cataracts in both eyes 10 DO NOT RESUSCITATE DO NOT INTUBATE STATUS with a presence of a legal guardian and a caregiver. Plan We'll continue same treatment. Unlikely that the patient will be a good candidate for thoracoscopy/decortication. The patient had a bedside thoracentesis with aspiration of limited amount of fluid in the fluid itself was serous and the patient is still on the same antibiotic coverage. Hemodynamically stable. White cell count is down to 47. Control his agitation with Haldol. Keep oxygen mask if possible. Maintain a saturation above 90%. DNR/DNI CODE STATUS for now.
[2018-11-13] MEDS: LORazepam 2 MG/ML INJ IV PRN ×3 (17:14→23:01)
[2018-11-14] MEDS: PIPERACILLIN-TAZOBACTAM 3.375 GM in SODIUM CHLORIDE 0.9% 100 ML IVPB SCH ×3 (00:11→15:41)
[2018-11-14] MEDS: HEPARIN SODIUM,PORCINE 5,000 UNIT/ML 1 ML VIAL SQ SCH ×3 (00:12→15:41)
[2018-11-14] MEDS: VANCOMYCIN 1,000 MG in SODIUM CHLORIDE 0.9% 250 ML IVPB SCH (00:16)
[2018-11-14] MEDS: SODIUM CHLORIDE 0.9% 1,000 ML IV SCH ×2 (01:00→15:41)
[2018-11-14] MEDS: ACETAMINOPHEN TAB 325 MG TAB PO PRN (05:31)
[2018-11-14] MEDS ORDERED: VANCOMYCIN TROUGH DUE 1 EACH MISC MISCELLANE ONE (07:00)
[2018-11-14] MEDS: IPRATROPIUM-ALBUTEROL 3 ML NEB INHALATION SCH ×4 (07:35→20:18)
[2018-11-14 07:44] LABS: Anisocytosis Slight; HCT 29.9 % (39.0-53.0); HGB 8.9 gm/dL (13.0-17.5); Hypochromasia Marked; MCH 25.4 pg (25.0-35.0); MCHC 29.8 g/dL (31.0-37.0); Mean Platelet Volume 7.9; Platelet Count 925 k/uL (150-450); Poikilocytosis Slight; RBC 3.51 m/uL (4.30-5.90); RDW 16.5 % (11.5-15.5); WBC 36.8 k/uL (3.8-10.6)
[2018-11-14 07:45] LABS: African American GFR (CKD) >90 (>60 ml/min/1.73 sqM); Anion Gap 8 mmol/L; Blood Urea Nitrogen 19 mg/dL (9-20); Calcium 7.5 mg/dL (8.4-10.2); Carbon Dioxide 23 mmol/L (22-30); Chloride 112 mmol/L (98-107); Glucose 147 mg/dL (74-99); Potassium 4.3 mmol/L (3.5-5.1); Sodium 143 mmol/L (137-145)
--- NOTE | 2018-11-14 08:02 | XR ---
EXAMINATION TYPE: XR chest 1V portable DATE OF EXAM: 11/14/2018 COMPARISON: 11/13/2018 HISTORY: Respiratory distress TECHNIQUE: Single frontal view of the chest is obtained. FINDINGS: Improving aeration in the consolidation in the right middle and lower lobe. Redemonstratio n of loculated pleural fluid and air in the right chest, decreasing along the right lateral chest and basilar region. Increasing consolidation in the left lower lung zone. No pneumothorax. Cardiac silho uette and pulmonary vasculature are within normal limits. Osseous structures are grossly intact. IMPRESSION: Improving aeration in the right lung with residual hydropneumothorax seen on CT dated 03/2019. Increasing left basilar consolidation may be related to atelectasis or infiltrate.
[2018-11-14] MEDS: LORazepam 2 MG/ML INJ IV PRN ×6 (08:12→22:53)
[2018-11-14 09:51] LABS: Lymphocytes # (M) 3.68 k/uL (1.0-4.8); Monocytes # (M) 2.94 k/uL (0-1.0); Neutrophils % (M) 82 %; Nucleated Red Blood Cells 0 /100 WBC (0-0); Total Cells Counted 100
[2018-11-14] MEDS: VANCOMYCIN 750 MG in SODIUM CHLORIDE 0.9% 250 ML IVPB SCH ×2 (09:54→18:25)
[2018-11-14] MEDS: PANTOPRAZOLE 40 MG/10 ML VIAL IV SCH (09:54)
[2018-11-14 09:55] LABS: Poikilocytosis (M) Present
--- NOTE | 2018-11-14 11:27 | P.PN ---
Subjective Progress Note Date: 11/14/18 This is the 53-year-old gentleman with autism/Down syndrome, legally blind presented to the ER with increased lethargy,dyspnea, increased cough, nausea vomiting, diarrhea, reported fevers, not eating well, right upper quadrant abdominal pain for about the last 3 weeks. No reported aspiration. T-max 101, WB C 60, platelets 1022, hemoglobin 11.1, alk phos 315. Abdominal series reported no intestinal obstruction or pneumoperitoneum, normal fecal pattern, right pleural effusion, right pulmonary consolidation, possible right sided diaphragmatic hernia. Abdominal ultrasound limited study, reported echogenic bile with no dilated ducts, no gallstones . 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 EKG reported sinus tachycardia. Chest x-ray reports redemonstration of left-sided hydropneumothorax,Similar to CT, right middle lower lobe consolidation likely related to pneumonia, left basilar opacity possibly related to atelectasis or infiltrate. Initiated on IV fluids, vancomycin and cefepime. Unable to keep oxygen on, currently maintaining O2 sats in the low 90s on room air. Ativan administered for anxiety/agitation. Admitted to ICU. If the patient is being obtained from staff, chart as patient nonverbal. Pulmonary and interventional radiology consulted. 11/13/2018 Yesterday underwent diagnostic ultrasound-guided thoracentesis, minimal fluid obtained, cultures sent/pending. Tolerated procedure well. Maintained on vancomycin and Zosyn, currently afebrile, T-max 100, WBC decreased to 47. Respiratory rate with significant coughing spells, followed by agitation, which have improved this morning. Chest x-ray this morning reporting mild improving aeration of the right lung, right chest consolidation / hydropneumothorax persists, and left basilar opacities, possible atelectasis versus infiltrate. Hemoglobin 8.9. Desats with pulling off mask.Caregiver at bedside around the clock, attempting to facilitate patient receiving O2 via nonrebreather, maintaining sats in the low 90s. Less tachycardic today. More calm this morning, eating well without difficulty. No nausea vomiting or diarrhea. 11/14/2018. Better night, oxygen weaned off currently maintaining O2 sats in the 90s on room air with mask on standby. Chest x-ray reporting improving right lung aeration with residual hydropneumothorax, increasing left basilar consolidation, possibly atelectasis versus infiltrate. Minimal agitation. Telemetry sinus rhythm. Afebrile, wbc's continue trending down, currently 36.8, preliminary cultures negative. Vancomycin redosed and continues on Zosyn as well. Currently presenting with no cough, no nausea vomiting or diarrhea. Good diet intake. Objective - Vital Signs Vital signs: Vital Signs Temp 97.4 F L 11/14/18 08:00 Pulse 98 11/14/18 11:00 Resp 15 11/14/18 11:00 BP 127/81 11/14/18 11:00 Pulse Ox 92 L 11/14/18 11:00 Intake & Output 11/13/18 11/14/18 11/14/18 18:59 06:59 18:59 Intake Total 1905 1455 620 Output Total 90 45 Balance 1815 1455 575 Weight 48.2 kg Intake: IV 1635 1335 500 Piperacillin-Tazobactam 3 175 125 50 .375 gm In Sodium Chloride 0.9% 100 ml @ 25 mls/hr IVPB Q8HR [facility] Rx# :[id number] Sodium Chloride 0.9% 1, 960 960 400 000 ml @ 80 mls/hr IV . [id number] [facility] Rx#:[id number] Vancomycin 1,000 mg In 500 250 50 Sodium Chloride 0.9% 250 ml @ 125 mls/hr IVPB Q12H [facility] Rx#:[id number] Oral 270 120 120 Output: Urine 90 45 Other: Voiding Method Incontinent Incontinent Incontinent # Voids 1 1 1 - Exam VITAL SIGNS: As above GENERAL: 53-year-old gentleman with Down syndrome ,Sitting up in bed, alert, restless, face. Face burried into pillow, unable to keep his oxygen on. HEENT: Conjunctivae normal. Chronic left eye defect. No scleral icterus. Mucous membranes moist NECK: Supple, No JVD. No thyroid enlargement. No LNs, no adenopathy CARDIOVASCULAR: S1, S2 regular. No murmur RESPIRATION: Breath sounds diminished in the bases, right greater than left. No rhonchi or crackles. No wheezing. ABDOMEN: Soft, nontender . No guarding. no masses palpable. Bowel sounds heard. LEGS: No edema. no swelling, no cyanosis, no clubbing PSYCHIATRY: Alert and appears oriented to caregiver and family, calm NERVOUS SYSTEM: Down syndrome, moving all 4 extremities Skin: no lesions, no rash Microbiology 11/12/18 11:01 Pleural Fluid Gram Stain - Preliminary 11/12/18 11:01 Pleural Fluid Body Fluid Culture - Preliminary 11/11/18 18:15 Blood Blood Culture - Preliminary No Growth after 24 hours 11/12/18 11:01 Pleural Fluid Anaerobic Culture - Preliminary - Labs CBC & Chem 7: 11/14/18 07:04 11/14/18 07:04 Labs: Abnormal Lab Results - Last 24 Hours (Table) 11/13/18 11/13/18 11/14/18 Range/Units 17:54 19:20 07:04 WBC 36.8 H (3.8-10.6) k/uL RBC 3.51 L (4.30-5.90) m/uL Hgb 8.9 L (13.0-17.5) gm/dL Hct 29.9 L (39.0-53.0) % MCHC 29.8 L (31.0-37.0) g/dL RDW 16.5 H (11.5-15.5) % Plt Count 925 H (150-450) k/uL Neutrophils # (Manual) 30.18 H (1.3-7.7) k/uL Monocytes # (Manual) 2.94 H (0-1.0) k/uL APTT 65.9 H 30.1 H (22.0-30.0) sec Chloride (98-107) mmol/L Glucose (74-99) mg/dL Calcium (8.4-10.2) mg/dL 11/14/18 Range/Units 07:04 WBC (3.8-10.6) k/uL RBC (4.30-5.90) m/uL Hgb (13.0-17.5) gm/dL Hct (39.0-53.0) % MCHC (31.0-37.0) g/dL RDW (11.5-15.5) % Plt Count (150-450) k/uL Neutrophils # (Manual) (1.3-7.7) k/uL Monocytes # (Manual) (0-1.0) k/uL APTT (22.0-30.0) sec Chloride 112 H (98-107) mmol/L Glucose 147 H (74-99) mg/dL Calcium 7.5 L (8.4-10.2) mg/dL Microbiology - Last 24 Hours (Table) 11/11/18 18:15 Blood Culture - Preliminary Blood No Growth after 48 hours 11/12/18 11:01 Anaerobic Culture - Preliminary Pleural Fluid 11/12/18 11:01 Gram Stain - Preliminary Pleural Fluid Body Fluid Culture - Preliminary Assessment and Plan Assessment: -Extensive right lung pneumonia, parapneumonic effusion, empyema,loculated right-sided hydropneumothorax. Possible aspiration, possible gram-negative pneumonia, possible parapneumonic -Acute hypoxic respiratory failure secondary to the above -Fevers, change in mental status, acute metabolic encephalopathy, secondary to the above -Leukocytosis secondary to the above -Thrombocytosis secondary to the above -Down syndrome, autistism -Legally blind -IBS -Gastroesophageal reflux disease -History of hernia repair Plan: Continue on current medication regime ,monitoring and symptomatic treatment. Continue monitoring cultures closely. Maintain vancomycin, Zosyn. O2 mask prn as per parameters by pulmonary/gas refrigerator servicer. Caregiver at bedside, updated on plan of care. The impression and plan of care has been dictated as directed. : I performed a history and examination of this patient, discussed the same with the dictator. I agree with the dictator's note ,documented as a scribe. Any additional findings or plans will be noted. Time taken: 35 minutes
--- NOTE | 2018-11-14 15:03 | P.PN ---
Subjective Progress Note Date: 11/14/18 This is a 53-year-old male patient, history of Down syndrome, history of autistic behavior, legally blind, resides with his mother and his brother and the patient has a caregiver. The patient also has a legal guardian. The patient has been having increased cough and some low-grade fever over the past 3 weeks. He was also having some nausea, emesis and diarrhea. He is fever was on and off and he had not been eating well. It's hard to obtain any medical information from the patient as the patient is nonverbal. He was apparently noted to be more lethargic and diminished appetite. He came into the emergency department yesterday. He was found to have an extensive consolidation of the right lung suggestive of pneumonia. Following that the patient a CAT scan of the chest that showed a moderate-sized right-sided loculated pleural effusion which was anterior and there is also some loculated pleural effusion posteriorly. There is some air-fluid levels in the pleural fluid posteriorly. There was also extensive consolidation of the right lung with some atelectatic changes in lung bases. No evidence of any diaphragmatic hernia. Empyema was suspected. No evidence of any mediastinal lymphadenopathy with compression fracture. The patient white cell count was at 60 and platelet count was also elevated at thousand 22. Overnight, the patient was given a combination of cefepime and vancomycin. He stayed in the intensive care unit. Unfortunately was very uncooperative and this is obviously related to his underlying mental disability and the patient has not been wearing his oxygen. He will lay down on his belly. No signs of any significant respiratory distress. He looks still l ethargic, uncooperative, and that is he gets agitated and he screams and yells at times. No obvious cough. No hemodynamic instability. He is on IV fluids and received a total of 2 L and currently is on a maintenance of 0.9 at the rate of 80 mL an hour. He is producing urine output. He is incontinent. I talked to the caregiver and I was told that he has a full CODE STATUS which is quite reasonable based on his current situation. In any rate, the patient is currently on broad-spectrum antibiotics. A consultation was placed for interventional radiology and thoracic surgery regarding this loculated pleural effusion. I'm not optimistic that anything surgical to be done for this patient especially with his underlying significant mental disability and inability to cooperate with treatment On 11/13/2018 I'm seeing this patient for a follow-up. The patient had a limited thoracentesis yesterday with a small amount of pleural fluid was aspirated from the right lung without any complication. Cultures are still pending for now. The fluid itself was none purulent was status. The patient remains on examination of Zosyn and vancomycin. He remains quite uncooperative and his restless and overnight he had difficulties maintaining his oxygen mask on. Based on that, the patient was given a combination of Ativan and Haldol. This morning he is much more comfortable and he is back to his usual position with his back flexed and he is essentially laying down on his chest. He is josh athing comfortably. His white cell count has dropped considerably from 60 down to 47. Cultures of been negative thus far. Is afebrile. He has taken some minimal amount of foods. Caregivers at the bedside. The patient meanwhile was switched to a DNR/DNI CODE STATUS after length discussion took place along with the family and the caregivers. On 11/14/2018, the patient is doing well. There is some improvement in aeration of the right lung on today's chest x-ray. The patient is on accommodation of Zosyn and vancomycin. Doing well. Interactive. Quite restless and at times he needs Ativan just to be calmed down and kept in bed. Otherwise he'll be wandering around and pulling on stuff. In general, with a feeling better. His oxidation is improved on room air and the patient is not using oxygen and is maintaining his pulse ox above 90%. I am still awaiting final culture results from the pleural fluid. The cultures are negative thus far. The patient is hemodynamically stable. The patient is able to tolerate diet. No nausea. No vomiting. No abdominal pain. Caregivers at the bedside. Objective - Vital Signs Vital signs: Vital Signs Temp 97.5 F L 11/14/18 12:01 Pulse 96 11/14/18 14:00 Resp 30 H 11/14/18 14:00 BP 142/106 11/14/18 14:00 Pulse Ox 94 L 11/14/18 14:00 Intake & Output 11/13/18 11/14/18 11/14/18 18:59 06:59 18:59 Intake Total 1905 1455 790 Output Total 90 90 Balance 1815 1455 700 Weight 48.2 kg Intake: IV 1635 1335 540 Piperacillin-Tazobactam 3 175 125 75 .375 gm In Sodium Chloride 0.9% 100 ml @ 25 mls/hr IVPB Q8HR [facility] Rx# :[id number] Sodium Chloride 0.9% 1, 960 960 415 000 ml @ 80 mls/hr IV . [id number] [facility] Rx#:[id number] Vancomycin 1,000 mg In 500 250 50 Sodium Chloride 0.9% 250 ml @ 125 mls/hr IVPB Q12H [facility] Rx#:[id number] Intake, IV Titration 130 Amount Sodium Chloride 0.9% 1, 80 000 ml @ 80 mls/hr IV . [id number] [facility] Rx#:[id number] Vancomycin 750 mg In 50 Sodium Chloride 0.9% 250 ml @ 125 mls/hr IVPB Q8H [facility] Rx#:[id number] Oral 270 120 120 Output: Urine 90 90 Other: Voiding Method Incontinent Incontinent Incontinent # Voids 1 1 1 - Exam Gen. appearance the patient has typical features of Down syndrome. Janey muir doesn't state still in bed. He is quite restless. He lays down with his belly and a face into the pillow. Unfortunately can't get them today usual sleeping position on his back. The patient has been unable to keep his oxygen mask or nasal cannula. Head exam was generally normal. There was no scleral icterus or corneal arcus. Mucous membranes were moist. The patient has typical Down's features. Neck was supple and without jugular venous distension, thyromegaly, or carotid bruits. Carotids were easily palpable bilaterally. There was no adenopathy. The patient has a Mallampati class IV. Mucous membranes are relatively dry. Lungs are diminished bilaterally right more than left. No significant rhonchi or wheeze at this point in time. Breath sounds are quite diminished. Cardiac exam revealed the PMI to be normally situated and sized. The rhythm was regular and no extrasystoles were noted during several minutes of auscultation. The first and second heart sounds were normal and physiologic splitting of the second heart sound was noted. There were no murmurs, rubs, clicks, or gallops. Abdominal exam revealed normal bowel sounds. The abdomen was soft, non-tender, and without masses, organomegaly, or appreciable enlargement of the abdominal aorta. Extremities revealed tiny hands and feet. The skin and scaly. Pulses are diminished at the present all 4 extremities. No open wounds or sores. No cyanosis. No clubbing. Neurologically, the patient is moving all 4 extremities. There is mental retardation related to history of Down syndrome. - Labs CBC & Chem 7: 11/14/18 07:04 11/14/18 07:04 Labs: Abnormal Lab Results - Last 24 Hours (Table) 11/13/18 11/13/18 11/14/18 Range/Units 17:54 19:20 07:04 WBC 36.8 H (3.8-10.6) k/uL RBC 3.51 L (4.30-5.90) m/uL Hgb 8.9 L (13.0-17.5) gm/dL Hct 29.9 L (39.0-53.0) % MCHC 29.8 L (31.0-37.0) g/dL RDW 16.5 H (11.5-15.5) % Plt Count 925 H (150-450) k/uL Neutrophils # (Manual) 30.18 H (1.3-7.7) k/uL Monocytes # (Manual) 2.94 H (0-1.0) k/uL APTT 65.9 H 30.1 H (22.0-30.0) sec Chloride (98-107) mmol/L Glucose (74-99) mg/dL Calcium (8.4-10.2) mg/dL 11/14/18 Range/Units 07:04 WBC (3.8-10.6) k/uL RBC (4.30-5.90) m/uL Hgb (13.0-17.5) gm/dL Hct (39.0-53.0) % MCHC (31.0-37.0) g/dL RDW (11.5-15.5) % Plt Count (150-450) k/uL Neutrophils # (Manual) (1.3-7.7) k/uL Monocytes # (Manual) (0-1.0) k/uL APTT (22.0-30.0) sec Chloride 112 H (98-107) mmol/L Glucose 147 H (74-99) mg/dL Calcium 7.5 L (8.4-10.2) mg/dL Microbiology - Last 24 Hours (Table) 11/12/18 11:01 Gram Stain - Preliminary Pleural Fluid Body Fluid Culture - Preliminary 11/11/18 18:15 Blood Culture - Preliminary Blood No Growth after 48 hours 11/12/18 11:01 Anaerobic Culture - Preliminary Pleural Fluid Assessment and Plan Plan: 1 extensive right lung pneumonia with a complicated parapneumonic effusion/early empyema. The patient has loculated pleural fluid anteriorly and posteriorly and the fluid collections are not communicating. Also, there may be some air-fluid level formation posteriorly. Consider aspiration. Consider gram-negative pneumonia. Consider pneumococcal pneumonia. The patient underwent a limited thoracentesis on the fluid culture are still pending for now. The fluid itself was serous and the fluid chemistry still pending for now. On today's chest x- ray there is some improvement in aeration of the right lung compared to yesterday's chest x-ray. Cultures from the pleural fluid are still negative rubio s far. The patient is hemodynamically stable. The patient remains on a broad- spectrum antibiotic coverage. 2 acute hypoxic respiratory failure secondary to above. The patient refuses to wear oxygen supplementation 3 acute leukocytosis secondary to above, improving and the patient's white cell count is on the decline 4 acute thrombocytosis secondary to above 5 Down syndrome 6 mental retardation 7 episodic fever secondary to above 8 diminished level of consciousness secondary to above 9. Legal blindness with cataracts in both eyes 10 DO NOT RESUSCITATE DO NOT INTUBATE STATUS with a presence of a legal guardian and a caregiver. Plan We'll continue same treatment. Clinically improving. Chest x-ray shows improvement in aeration. The white cell count is down to 36. Currently on room air oxygen. He seems to be responding. Continue supportive care. He may need a follow-up CAT scan later stage in regards to the right lung findings to see if there is any loculated pocket of fluid that can be drained percutaneously. Poor candidate for surgery. We'll follow.
[2018-11-15] MEDS: HEPARIN SODIUM,PORCINE 5,000 UNIT/ML 1 ML VIAL SQ SCH ×3 (00:26→18:04)
[2018-11-15] MEDS: PIPERACILLIN-TAZOBACTAM 3.375 GM in SODIUM CHLORIDE 0.9% 100 ML IVPB SCH ×3 (00:27→18:00)
[2018-11-15] MEDS: VANCOMYCIN 750 MG in SODIUM CHLORIDE 0.9% 250 ML IVPB SCH ×2 (02:50→21:21)
[2018-11-15] MEDS: SODIUM CHLORIDE 0.9% 1,000 ML IV SCH (02:50)
[2018-11-15] MEDS: LORazepam 2 MG/ML INJ IV PRN ×2 (03:03→22:39)
[2018-11-15] MEDS: IPRATROPIUM-ALBUTEROL 3 ML NEB INHALATION SCH ×4 (07:39→21:28)
[2018-11-15] MEDS ORDERED: VANCOMYCIN TROUGH DUE 1 EACH MISC MISCELLANE ONE (09:00)
[2018-11-15 09:06] LABS: Anisocytosis Slight; HCT 33.1 % (39.0-53.0); HGB 10.4 gm/dL (13.0-17.5); Hypochromasia Moderate; MCH 26.1 pg (25.0-35.0); MCHC 31.3 g/dL (31.0-37.0); MCV 83.3 fL (80.0-100.0); Mean Platelet Volume 8.2; Platelet Count 932 k/uL (150-450); Poikilocytosis Slight; RBC 3.97 m/uL (4.30-5.90); RDW 17.3 % (11.5-15.5)
[2018-11-15 09:09] LABS: African American GFR (CKD) >90 (>60 ml/min/1.73 sqM); Anion Gap 10 mmol/L; Blood Urea Nitrogen 15 mg/dL (9-20); Calcium 7.8 mg/dL (8.4-10.2); Carbon Dioxide 25 mmol/L (22-30); Chloride 103 mmol/L (98-107); Glucose 83 mg/dL (74-99); Potassium 4.1 mmol/L (3.5-5.1); Sodium 138 mmol/L (137-145)
[2018-11-15 09:58] LABS: Band Neutrophils % 4 %; Lymphocytes # (M) 4.23 k/uL (1.0-4.8); Metamyelocytes % 4 %; Monocytes # (M) 1.95 k/uL (0-1.0); Myelocytes # (M) 0.33 k/uL (0); Myelocytes % 1 %; Neutrophils % (M) 74 %; Nucleated Red Blood Cells 1 /100 WBC (0-0); Total Cells Counted 200; WBC 32.5 k/uL (3.8-10.6)
[2018-11-15 09:59] LABS: Polychromasia Present; Target Cells Present
[2018-11-15] MEDS: PANTOPRAZOLE 40 MG/10 ML VIAL IV SCH (10:37)
--- NOTE | 2018-11-15 11:22 | XR ---
EXAMINATION TYPE: XR chest 1V DATE OF EXAM: 11/15/2018 COMPARISON: 11/14/2018 HISTORY: Right lung pneumonia. TECHNIQUE: Single frontal view of the chest is obtained. FINDINGS: Redemonstration of multiloculated pleural effusion with pleural air along the medial left lower lung zone. Consolidative and interstitial process is again seen in the right mid and lower lung zone. Left lower lung zone opacities appear similar. Cardiac silhouette is unchanged. Osseous struct ures are grossly intact. IMPRESSION: Overall, no significant change when compared to prior exam.
--- NOTE | 2018-11-15 14:17 | P.PN ---
Subjective Progress Note Date: 11/15/18 This is the 53-year-old gentleman with autism/Down syndrome, legally blind presented to the ER with increased lethargy,dyspnea, increased cough, nausea vomiting, diarrhea, reported fevers, not eating well, right upper quadrant abdominal pain for about the last 3 weeks. No reported aspiration. T-max 101, WB C 60, platelets 1022, hemoglobin 11.1, alk phos 315. Abdominal series reported no intestinal obstruction or pneumoperitoneum, normal fecal pattern, right pleural effusion, right pulmonary consolidation, possible right sided diaphragmatic hernia. Abdominal ultrasound limited study, reported echogenic bile with no dilated ducts, no gallstones . 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 EKG reported sinus tachycardia. Chest x-ray reports redemonstration of left-sided hydropneumothorax,Similar to CT, right middle lower lobe consolidation likely related to pneumonia, left basilar opacity possibly related to atelectasis or infiltrate. Initiated on IV fluids, vancomycin and cefepime. Unable to keep oxygen on, currently maintaining O2 sats in the low 90s on room air. Ativan administered for anxiety/agitation. Admitted to ICU. If the patient is being obtained from staff, chart as patient nonverbal. Pulmonary and interventional radiology consulted. 11/13/2018 Yesterday underwent diagnostic ultrasound-guided thoracentesis, minimal fluid obtained, cultures sent/pending. Tolerated procedure well. Maintained on vancomycin and Zosyn, currently afebrile, T-max 100, WBC decreased to 47. Respiratory rate with significant coughing spells, followed by agitation, which have improved this morning. Chest x-ray this morning reporting mild improving aeration of the right lung, right chest consolidation / hydropneumothorax persists, and left basilar opacities, possible atelectasis versus infiltrate. Hemoglobin 8.9. Desats with pulling off mask.Caregiver at bedside around the clock, attempting to facilitate patient receiving O2 via nonrebreather, maintaining sats in the low 90s. Less tachycardic today. More calm this morning, eating well without difficulty. No nausea vomiting or diarrhea. 11/14/2018. Better night, oxygen weaned off currently maintaining O2 sats in the 90s on room air with mask on standby. Chest x-ray reporting improving right lung aeration with residual hydropneumothorax, increasing left basilar consolidation, possibly atelectasis versus infiltrate. Minimal agitation. Telemetry sinus rhythm. Afebrile, wbc's continue trending down, currently 36.8, preliminary cultures negative. Vancomycin redosed and continues on Zosyn as well. Currently presenting with no cough, no nausea vomiting or diarrhea. Good diet intake. 11/15/2018 caregiver at bedside, minimal sleep during the night, patient was agitated. Currently sleeping this morning, comfortably. Maintained on Zosyn IV antibiotics. Afebrile, WBC down to 32.5. Chest x-ray reporting no significant change. Anaerobic wound culture reporting alpha hemolytic streptococcus. Vital signs stable, maintaining O2 sats in the 90s on room air. Objective - Vital Signs Vital signs: Vital Signs Temp 98 F 11/15/18 04:00 Pulse 97 11/15/18 11:45 Resp 23 11/15/18 07:00 BP 136/86 11/15/18 07:00 Pulse Ox 90 L 11/15/18 07:00 Intake & Output 11/14/18 11/15/18 11/15/18 18:59 06:59 18:59 Intake Total 910 390 Output Total 135 Balance 775 390 Weight 47.9 kg Intake: IV 660 365 Piperacillin-Tazobactam 3 175 100 .375 gm In Sodium Chloride 0.9% 100 ml @ 25 mls/hr IVPB Q8HR [facility] Rx# :[id number] Sodium Chloride 0.9% 1, 435 15 000 ml @ 5 mls/hr IV . Q24H [facility] Rx#:[id number] Vancomycin 1,000 mg In 50 Sodium Chloride 0.9% 250 ml @ 125 mls/hr IVPB Q12H [facility] Rx#:[id number] Vancomycin 750 mg In 250 Sodium Chloride 0.9% 250 ml @ 125 mls/hr IVPB Q8H [facility] Rx#:[id number] Intake, IV Titration 130 25 Amount Sodium Chloride 0.9% 1, 80 000 ml @ 5 mls/hr IV . Q24H [facility] Rx#:[id number] Vancomycin 750 mg In 50 25 Sodium Chloride 0.9% 250 ml @ 125 mls/hr IVPB Q8H [facility] Rx#:[id number] Oral 120 Output: Urine 135 Other: Voiding Method Incontinent Incontinent # Voids 1 1 0 # Bowel Movements 1 - Exam VITAL SIGNS: As above GENERAL: 53-year-old gentleman with Down syndrome ,Sitting up in bed, resting comfortably HEENT: Conjunctivae normal. Chronic left eye defect. No scleral icterus. Mucous membranes moist NECK: Supple, No JVD. No thyroid enlargement. No LNs, no adenopathy CARDIOVASCULAR: S1, S2 regular. No murmur RESPIRATION: Breath sounds diminished in the bases, right greater than left. No rhonchi or crackles. No wheezing. ABDOMEN: Soft, nontender . No guarding. no masses palpable. Bowel sounds heard. LEGS: No edema. no swelling, no cyanosis, no clubbing PSYCHIATRY: Alert and appears oriented to caregiver and family, calm NERVOUS SYSTEM: Down syndrome, moving all 4 extremities Skin: no lesions, no rash Microbiology 11/12/18 11:01 Pleural Fluid Anaerobic Culture - Preliminary Alpha Hemolytic Streptococcus 11/12/18 11:01 Pleural Fluid Gram Stain - Preliminary 11/12/18 11:01 Pleural Fluid Body Fluid Culture - Preliminary 11/11/18 18:15 Blood Blood Culture - Preliminary No Growth after 72 hours - Labs CBC & Chem 7: 11/15/18 08:39 11/15/18 08:39 Labs: Abnormal Lab Results - Last 24 Hours (Table) 11/15/18 11/15/18 Range/Units 08:39 08:39 WBC 32.5 H (3.8-10.6) k/uL RBC 3.97 L (4.30-5.90) m/uL Hgb 10.4 L (13.0-17.5) gm/dL Hct 33.1 L (39.0-53.0) % RDW 17.3 H (11.5-15.5) % Plt Count 932 H (150-450) k/uL Neutrophils # (Manual) 25.30 H (1.3-7.7) k/uL Monocytes # (Manual) 1.95 H (0-1.0) k/uL Metamyelocytes # (Man) 1.30 H (0) k/uL Myelocytes # (Manual) 0.33 H (0) k/uL Nucleated RBCs 1 H (0-0) /100 WBC Creatinine 0.63 L (0.66-1.25) mg/dL Calcium 7.8 L (8.4-10.2) mg/dL Microbiology - Last 24 Hours (Table) 11/12/18 11:01 Anaerobic Culture - Preliminary Pleural Fluid Alpha Hemolytic Streptococcus 11/12/18 11:01 Gram Stain - Preliminary Pleural Fluid Body Fluid Culture - Preliminary 11/11/18 18:15 Blood Culture - Preliminary Blood No Growth after 72 hours Assessment and Plan Assessment: -Extensive right lung pneumonia, parapneumonic effusion, empyema,loculated right-sided hydropneumothorax. Possible aspiration, possible gram-negative pneumonia, possible parapneumonic.Pleural Anaerobic wound culture reporting alpha hemolytic streptococcus. -Acute hypoxic respiratory failure secondary to the above -Fevers, change in mental status, acute metabolic encephalopathy, secondary to the above -Leukocytosis secondary to the above -Thrombocytosis secondary to the above -Down syndrome, autistism -Legally blind -IBS -Gastroesophageal reflux disease -History of hernia repair Plan: Continue on current medication regime ,monitoring and symptomatic treatment. Continue monitoring cultures closely. Maintain IV antibiotics, supportive care. Follow closely with pulmonary. Caregiver at bedside, updated on plan of care. The impression and plan of care has been dictated as directed. : I performed a history and examination of this patient, discussed the same with the dictator. I agree with the dictator's note ,documented as a scribe. Any additional findings or plans will be noted. Time taken: 35 minutes
--- NOTE | 2018-11-15 15:43 | P.PN ---
Subjective Progress Note Date: 11/15/18 This is a 53-year-old male patient, history of Down syndrome, history of autistic behavior, legally blind, resides with his mother and his brother and the patient has a caregiver. The patient also has a legal guardian. The patient has been having increased cough and some low-grade fever over the past 3 weeks. He was also having some nausea, emesis and diarrhea. He is fever was on and off and he had not been eating well. It's hard to obtain any medical information from the patient as the patient is nonverbal. He was apparently noted to be more lethargic and diminished appetite. He came into the emergency department yesterday. He was found to have an extensive consolidation of the right lung suggestive of pneumonia. Following that the patient a CAT scan of the chest that showed a moderate-sized right-sided loculated pleural effusion which was anterior and there is also some loculated pleural effusion posteriorly. There is some air-fluid levels in the pleural fluid posteriorly. There was also extensive consolidation of the right lung with some atelectatic changes in lung bases. No evidence of any diaphragmatic hernia. Empyema was suspected. No evidence of any mediastinal lymphadenopathy with compression fracture. The patient white cell count was at 60 and platelet count was also elevated at thousand 22. Overnight, the patient was given a combination of cefepime and vancomycin. He stayed in the intensive care unit. Unfortunately was very uncooperative and this is obviously related to his underlying mental disability and the patient has not been wearing his oxygen. He will lay down on his belly. No signs of any significant respiratory distress. He looks still l ethargic, uncooperative, and that is he gets agitated and he screams and yells at times. No obvious cough. No hemodynamic instability. He is on IV fluids and received a total of 2 L and currently is on a maintenance of 0.9 at the rate of 80 mL an hour. He is producing urine output. He is incontinent. I talked to the caregiver and I was told that he has a full CODE STATUS which is quite reasonable based on his current situation. In any rate, the patient is currently on broad-spectrum antibiotics. A consultation was placed for interventional radiology and thoracic surgery regarding this loculated pleural effusion. I'm not optimistic that anything surgical to be done for this patient especially with his underlying significant mental disability and inability to cooperate with treatment On 11/13/2018 I'm seeing this patient for a follow-up. The patient had a limited thoracentesis yesterday with a small amount of pleural fluid was aspirated from the right lung without any complication. Cultures are still pending for now. The fluid itself was none purulent was status. The patient remains on examination of Zosyn and vancomycin. He remains quite uncooperative and his restless and overnight he had difficulties maintaining his oxygen mask on. Based on that, the patient was given a combination of Ativan and Haldol. This morning he is much more comfortable and he is back to his usual position with his back flexed and he is essentially laying down on his chest. He is josh athing comfortably. His white cell count has dropped considerably from 60 down to 47. Cultures of been negative thus far. Is afebrile. He has taken some minimal amount of foods. Caregivers at the bedside. The patient meanwhile was switched to a DNR/DNI CODE STATUS after length discussion took place along with the family and the caregivers. On 11/14/2018, the patient is doing well. There is some improvement in aeration of the right lung on today's chest x-ray. The patient is on accommodation of Zosyn and vancomycin. Doing well. Interactive. Quite restless and at times he needs Ativan just to be calmed down and kept in bed. Otherwise he'll be wandering around and pulling on stuff. In general, with a feeling better. His oxidation is improved on room air and the patient is not using oxygen and is maintaining his pulse ox above 90%. I am still awaiting final culture results from the pleural fluid. The cultures are negative thus far. The patient is hemodynamically stable. The patient is able to tolerate diet. No nausea. No vomiting. No abdominal pain. Caregivers at the bedside. On 11/15/2018 the patient is in the intensive care unit and his follow-up chest x-ray shows a moderately loculated pleural effusion on the right with pleural fluid and air along the medial left lower zone. Consolidation is mainly on the right involving the right mid and the lower lung horn. The pleural fluid was aspirated showed alphahemolytic strep and the vancomycin was discontinued and the patient be kept on IV Zosyn for the time being. He is okay today. He seems to be more cooperative. He is taking Ativan on a when necessary basis. Is tolerating his diet. He is hemodynamically stable. White cell count gradually improving is down to 32.5. He remains on bronchodilators. Objective - Vital Signs Vital signs: Vital Signs Temp 98 F 11/15/18 04:00 Pulse 97 11/15/18 11:45 Resp 23 11/15/18 07:00 BP 136/86 11/15/18 07:00 Pulse Ox 90 L 11/15/18 07:00 Intake & Output 11/14/18 11/15/18 11/15/18 18:59 06:59 18:59 Intake Total 910 390 Output Total 135 Balance 775 390 Weight 47.9 kg Intake: IV 660 365 Piperacillin-Tazobactam 3 175 100 .375 gm In Sodium Chloride 0.9% 100 ml @ 25 mls/hr IVPB Q8HR [facility] Rx# :[id number] Sodium Chloride 0.9% 1, 435 15 000 ml @ 5 mls/hr IV . Q24H [facility] Rx#:[id number] Vancomycin 1,000 mg In 50 Sodium Chloride 0.9% 250 ml @ 125 mls/hr IVPB Q12H [facility] Rx#:[id number] Vancomycin 750 mg In 250 Sodium Chloride 0.9% 250 ml @ 125 mls/hr IVPB Q8H [facility] Rx#:[id number] Intake, IV Titration 130 25 Amount Sodium Chloride 0.9% 1, 80 000 ml @ 5 mls/hr IV . Q24H [facility] Rx#:[id number] Vancomycin 750 mg In 50 25 Sodium Chloride 0.9% 250 ml @ 125 mls/hr IVPB Q8H [facility] Rx#:[id number] Oral 120 Output: Urine 135 Other: Voiding Method Incontinent Incontinent # Voids 1 1 0 # Bowel Movements 1 - Exam Gen. appearance the patient has typical features of Down syndrome. Unfortunately doesn't state still in bed. He is quite restless. He lays down with his belly and a face into the pillow. Unfortunately can't get them today usual sleeping position on his back. The patient has been unable to keep his oxygen mask or nasal cannula. Head exam was generally normal. There was no scleral icterus or corneal arcus. Mucous membranes were moist. The patient has typical Down's features. Neck was supple and without jugular venous distension, thyromegaly, or carotid bruits. Carotids were easily palpable bilaterally. There was no adenopathy. The patient has a Mallampati class IV. Mucous membranes are relatively dry. Lungs are diminished bilaterally right more than left. No significant rhonchi or wheeze at this point in time. Breath sounds are quite diminished. Cardiac exam revealed the PMI to be normally situated and sized. The rhythm was regular and no extrasystoles were noted during several minutes of auscultation. The first and second heart sounds were normal and physiologic splitting of the second heart sound was noted. There were no murmurs, rubs, clicks, or gallops. Abdominal exam revealed normal bowel sounds. The abdomen was soft, non-tender, and without masses, organomegaly, or appreciable enlargement of the abdominal aorta. Extremities revealed tiny hands and feet. The skin and scaly. Pulses are diminished at the present all 4 extremities. No open wounds or sores. No cyanosis. No clubbing. Neurologically, the patient is moving all 4 extremities. There is mental retardation related to history of Down syndrome. - Labs CBC & Chem 7: 11/15/18 08:39 11/15/18 08:39 Labs: Abnormal Lab Results - Last 24 Hours (Table) 11/15/18 11/15/18 Range/Units 08:39 08:39 WBC 32.5 H (3.8-10.6) k/uL RBC 3.97 L (4.30-5.90) m/uL Hgb 10.4 L (13.0-17.5) gm/dL Hct 33.1 L (39.0-53.0) % RDW 17.3 H (11.5-15.5) % Plt Count 932 H (150-450) k/uL Neutrophils # (Manual) 25.30 H (1.3-7.7) k/uL Monocytes # (Manual) 1.95 H (0-1.0) k/uL Metamyelocytes # (Man) 1.30 H (0) k/uL Myelocytes # (Manual) 0.33 H (0) k/uL Nucleated RBCs 1 H (0-0) /100 WBC Creatinine 0.63 L (0.66-1.25) mg/dL Calcium 7.8 L (8.4-10.2) mg/dL Microbiology - Last 24 Hours (Table) 11/12/18 11:01 Anaerobic Culture - Preliminary Pleural Fluid Alpha Hemolytic Streptococcus 11/12/18 11:01 Gram Stain - Preliminary Pleural Fluid Body Fluid Culture - Preliminary 11/11/18 18:15 Blood Culture - Preliminary Blood No Growth after 72 hours Assessment and Plan Plan: 1 extensive streptococcal right lung pneumonia with a complicated parapneumonic effusion/early empyema. The patient's pleural fluid was positive for alphahemolytic strep. Obviously this is consistent with complicated parapneumonic effusion/empyema. Nevertheless this patient is not a candidate for any surgical intervention/drainage. I'm going to discontinue the vancomycin and keep the patient on IV Zosyn. I'm going also to repeat the CAT scan with next 24 hours to reevaluate the extent of the pleural effusion and see there is any room for percutaneous drainage of the pleural fluid. Clinically stable. Oxidation improved. White cell count is improving. 2 acute hypoxic respiratory failure secondary to above. The patient refuses to wear oxygen supplementation 3 acute leukocytosis secondary to above, improving and the patient's white cell count is on the decline 4 acute thrombocytosis secondary to above 5 Down syndrome 6 mental retardation 7 episodic fever secondary to above 8 diminished level of consciousness secondary to above 9. Legal blindness with cataracts in both eyes 10 DO NOT RESUSCITATE DO NOT INTUBATE STATUS with a presence of a legal guardian and a caregiver. Plan We'll set up the patient for a CAT scan for tomorrow. Continue IV Zosyn. Discontinue the vancomycin. Continue bronchi dilators. Aspiration precautions. Will follow. Possible another drainage procedure as long as there is a pleural fluid is accessible for percutaneous drainage. Not a candidate for any surgical or thoracoscopic intervention/decortication.
[2018-11-15] MEDS: ACETAMINOPHEN TAB 325 MG TAB PO PRN (19:37)
[2018-11-15] MEDS ORDERED: ACETAMINOPHEN IV (For NPO) 750 MG in EMPTY BAG 1 BAG IVPB PRN (19:46)
[2018-11-15] MEDS ORDERED: VANCOMYCIN 1,000 MG in SODIUM CHLORIDE 0.9% 250 ML IVPB SCH (20:00)
[2018-11-16] MEDS: PIPERACILLIN-TAZOBACTAM 3.375 GM in SODIUM CHLORIDE 0.9% 100 ML IVPB SCH ×2 (01:04→09:51)
[2018-11-16] MEDS: HEPARIN SODIUM,PORCINE 5,000 UNIT/ML 1 ML VIAL SQ SCH ×2 (01:04→09:53)
[2018-11-16] MEDS: SODIUM CHLORIDE 0.9% 1,000 ML IV SCH (05:35)
[2018-11-16] MEDS: IPRATROPIUM-ALBUTEROL 3 ML NEB INHALATION SCH ×3 (08:50→16:34)
[2018-11-16 09:22] LABS: African American GFR (CKD) >90 (>60 ml/min/1.73 sqM); Anion Gap 8 mmol/L; Blood Urea Nitrogen 13 mg/dL (9-20); Calcium 7.5 mg/dL (8.4-10.2); Carbon Dioxide 30 mmol/L (22-30); Chloride 99 mmol/L (98-107); Glucose 75 mg/dL (74-99); Potassium 4.1 mmol/L (3.5-5.1); Sodium 137 mmol/L (137-145)
[2018-11-16 09:34] LABS: Anisocytosis Slight; HCT 33.3 % (39.0-53.0); HGB 10.5 gm/dL (13.0-17.5); Hypochromasia Moderate; MCHC 31.4 g/dL (31.0-37.0); MCV 82.7 fL (80.0-100.0); Mean Platelet Volume 9.1; Platelet Count 797 k/uL (150-450); Poikilocytosis Slight; RBC 4.03 m/uL (4.30-5.90); RDW 18.3 % (11.5-15.5); WBC 28.5 k/uL (3.8-10.6)
[2018-11-16] MEDS: PANTOPRAZOLE 40 MG/10 ML VIAL IV SCH (09:48)
--- NOTE | 2018-11-16 10:30 | P.PN ---
Subjective Progress Note Date: 11/16/18 Principal diagnosis: Extensive streptococcal right lung pneumonia with A complicated parapneumonic effusion/early empyema. This is a 53-year-old male patient, history of Down syndrome, history of autistic behavior, legally blind, resides with his mother and his brother and the patient has a caregiver. The patient also has a legal guardian. The patient has been having increased cough and some low-grade fever over the past 3 weeks. He was also having some nausea, emesis and diarrhea. He is fever was on and off and he had not been eating well. It's hard to obtain any medical information from the patient as the patient is nonverbal. He was apparently noted to be more lethargic and diminished appetite. He came into the emergency department yesterday. He was found to have an extensive consolidation of the right lung suggestive of pneumonia. Following that the patient a CAT scan of the chest that showed a moderate-sized right-sided loculated pleural effusion which was anterior and there is also some loculated pleural effusion posteriorly. There is some air-fluid levels in the pleural fluid posteriorly. There was also extensive consolidation of the right lung with some atelectatic changes in lung bases. No evidence of any diaphragmatic hernia. Empyema was suspected. No evidence of any mediastinal lymphadenopathy with compression fracture. The patient white cell count was at 60 and platelet count was also elevated at thousand 22. Overnight, the patient was given a combination of cefepime and vancomycin. He stayed in the intensive care unit. Unfortunately was very uncooperative and this is obviously related to his underlying mental disability and the patient has not been wearing his oxygen. He will lay down on his belly. No signs of any significant respiratory distress. He looks still lethargic, uncooperative, and that is he gets agitated and he screams and yells at times. No obvious cough. No hemodynamic instability. He is on IV fluids and received a total of 2 L and currently is on a maintenance of 0.9 at the rate of 80 mL an hour. He is producing urine output. He is incontinent. I talked to the caregiver and I was told that he has a full CODE STATUS which is quite reasonable based on his current situation. In any rate, the patient is currently on broad-spectrum antibiotics. A consultation was placed for interventional radiology and thoracic surgery regarding this loculated pleural effusion. I'm not optimistic that anything surgical to be done for this patient especially with his underlying significant mental disability and inability to cooperate with treatment On 11/13/2018 I'm seeing this patient for a follow-up. The patient had a limited thoracentesis yesterday with a small amount of pleural fluid was aspirated from the right lung without any complication. Cultures are still pending for now. The fluid itself was none purulent was status. The patient remains on examination of Zosyn and vancomycin. He remains quite uncooperative and his restless and overnight he had difficulties maintaining his oxygen mask on. Based on that, the patient was given a combination of Ativan and Haldol. This morning he is much more comfortable and he is back to his usual position with his back flexed and he is essentially laying down on his chest. He is breathing comfortably. His white cell count has dropped considerably from 60 down to 47. Cultures of been negative thus far. Is afebrile. He has taken some minimal amount of foods. Caregivers at the bedside. The patient meanwhile was switched to a DNR/DNI CODE STATUS after length discussion took place along with the family and the caregivers. On 11/14/2018, the patient is doing well. There is some improvement in aeration of the right lung on today's chest x-ray. The patient is on accommodation of Zosyn and vancomycin. Doing well. Interactive. Quite restless and at times he needs Ativan just to be calmed down and kept in bed. Otherwise he'll be wandering around and pulling on stuff. In general, with a feeling better. His oxidation is improved on room air and the patient is not using oxygen and is maintaining his pulse ox above 90%. I am still awaiting final culture results from the pleural fluid. The cultures are negative thus far. The patient is hemodynamically stable. The patient is able to tolerate diet. No nausea. No vomiting. No abdominal pain. Caregivers at the bedside. On 11/15/2018 the patient is in the intensive care unit and his follow-up chest x-ray shows a moderately loculated pleural effusion on the right with pleural fluid and air along the medial left lower zone. Consolidation is mainly on the right involving the right mid and the lower lung horn. The pleural fluid was aspirated showed alphahemolytic strep and the vancomycin was discontinued and the patient be kept on IV Zosyn for the time being. He is okay today. He seems to be more cooperative. He is taking Ativan on a when necessary basis. Is tolerating his diet. He is hemodynamically stable. White cell count gradually improving is down to 32.5. He remains on bronchodilators. The patient is seen today 11/16/2018 in follow-up on the regular medical floor. He is currently resting comfortably in bed. He has a loose nonproductive cough. Continue O2 saturations in the low 90s on room air. He's afebrile. Hemodynamically stable. White count 28.5. Hemoglobin 10.5. Platelet count 797,000. Sodium 137. Potassium 4.1. Creatinine 0.79. He remains on IV Zosyn and bronchodilators. His sister is at the bedside. Objective - Vital Signs Vital signs: Vital Signs Temp 98.2 F 11/16/18 08:16 Pulse 100 11/16/18 08:50 Resp 18 11/16/18 08:16 BP 116/69 11/16/18 08:16 Pulse Ox 91 L 11/16/18 08:16 Intake & Output 11/15/18 11/16/18 11/16/18 18:59 06:59 18:59 Intake Total 450 325 Balance 450 325 Intake: IV 450 125 Piperacillin-Tazobactam 3 200 100 .375 gm In Sodium Chloride 0.9% 100 ml @ 25 mls/hr IVPB Q8HR JOSE FRANCISCO Rx# :[id number] Sodium Chloride 0.9% 1, 25 000 ml @ 5 mls/hr IV . Q24H JOSE FRANCISCO Rx#:[id number] Vancomycin 750 mg In 250 Sodium Chloride 0.9% 250 ml @ 125 mls/hr IVPB Q8H JOSE FRANCISCO Rx#:[id number] Oral 200 Other: Voiding Method Incontinent Diaper Incontinent # Voids 1 1 1 # Bowel Movements 1 - Exam Gen. appearance the patient has typical features of Down syndrome. Currently resting comfortably in bed. On room air. Head exam was generally normal. There was no scleral icterus or corneal arcus. Mucous membranes were moist. The patient has typical Down's features. Neck was supple and without jugular venous distension, thyromegaly, or carotid bruits. Carotids were easily palpable bilaterally. There was no adenopathy. The patient has a Mallampati class IV. Mucous membranes are relatively dry. Lungs are diminished bilaterally right more than left. No significant rhonchi or wheeze at this point in time. Breath sounds are quite diminished. Cardiac exam revealed the PMI to be normally situated and sized. The rhythm was regular and no extrasystoles were noted during several minutes of auscultation. The first and second heart sounds were normal and physiologic splitting of the second heart sound was noted. There were no murmurs, rubs, clicks, or gallops. Abdominal exam revealed normal bowel sounds. The abdomen was soft, non-tender, and without masses, organomegaly, or appreciable enlargement of the abdominal aorta. Extremities revealed tiny hands and feet. The skin and scaly. Pulses are diminished at the present all 4 extremities. No open wounds or sores. No cyanosis. No clubbing. Neurologically, the patient is moving all 4 extremities. There is mental retardation related to history of Down syndrome. - Labs CBC & Chem 7: 11/16/18 07:24 11/16/18 07:24 Labs: Abnormal Lab Results - Last 24 Hours (Table) 11/16/18 11/16/18 Range/Units 07:24 07:24 WBC 28.5 H (3.8-10.6) k/uL RBC 4.03 L (4.30-5.90) m/uL Hgb 10.5 L (13.0-17.5) gm/dL Hct 33.3 L (39.0-53.0) % RDW 18.3 H (11.5-15.5) % Plt Count 797 H (150-450) k/uL Calcium 7.5 L (8.4-10.2) mg/dL Microbiology - Last 24 Hours (Table) 11/12/18 11:01 Gram Stain - Final Pleural Fluid Body Fluid Culture - Final 11/11/18 18:15 Blood Culture - Preliminary Blood No Growth after 96 hours 11/12/18 11:01 Anaerobic Culture - Preliminary Pleural Fluid Alpha Hemolytic Streptococcus Assessment and Plan Assessment: Impression: 1 extensive streptococcal right lung pneumonia with a complicated parapneumonic effusion/early empyema. The patient's pleural fluid was positive for alphahemolytic strep. Obviously this is consistent with complicated parapneumonic effusion/empyema. Nevertheless this patient is not a candidate for any surgical intervention/drainage. On IV Zosyn. Clinically stable. Oxygenation improved. On room air. White cell count is improving. 2 acute hypoxic respiratory failure secondary to above. The patient refuses to wear oxygen supplementation. Presently 91% on room air. 3 acute leukocytosis secondary to above, improving and the patient's white cell count is on the decline 4 acute thrombocytosis secondary to above 5 Down syndrome 6 mental retardation 7 episodic fever secondary to above 8 diminished level of consciousness secondary to above 9. Legal blindness with cataracts in both eyes 10 DO NOT RESUSCITATE DO NOT INTUBATE STATUS with a presence of a legal guardian and a caregiver. Plan: The patient was seen and evaluated by Dr. Moncada. Unfortunately, the patient's mother . His sister is at the bedside and is hoping the patient can go home today. We would recommend continuing antibiotics in the for m of Augmentin. If possible he could follow-up in our office. We'll repeat a chest x-ray then. I, the cosigning physician, performed a history & physical examination of the patient. Lungs sounds with few scattered rhonchi. Maintaining good O2 saturations in the 90s on room air. I discussed the assessment and plan of care with my nurse practitioner, Sofie Ryan. I attest to the above note as dictated by her.
[2018-11-16] MEDS: LORazepam 2 MG/ML INJ IV PRN (10:46)
[2018-11-16 11:37] VITALS: BP 102/67; RESP 20; TEMP 98.1
--- NOTE | 2018-11-16 12:42 | P.DS ---
Providers Date of admission: 11/11/18 22:07 Expected date of discharge: 11/16/18 Attending physician: Zackary Ferguson Consults: 11/11/18 22:05 Consult Physician Routine Consulting Provider: Herminia Moncada Consult Reason/Comments: icu patient Do you want consulting provider notified?: Already Contacted 11/12/18 09:19 Consult to Anesthesia Routine Consulting Provider: Anesthesia,Services Consult Reason/Comments: Sedation for needle aspiration. Primary care physician: Justin Rizvi - Dom Diagnosis(es) (1) Empyema lung Current Visit: Yes Status: Acute (2) Acute respiratory failure with hypoxia Current Visit: Yes Status: Acute (3) Down's syndrome Current Visit: Yes Status: Acute (4) Leukocytosis, unspecified Current Visit: Yes Status: Acute (5) Fever Current Visit: Yes Status: Acute (6) Blind in both eyes Current Visit: Yes Status: Acute (7) GERD (gastroesophageal reflux disease) Current Visit: Yes Status: Acute Hospital Course: This is the 53-year-old gentleman with autism/Down syndrome, legally blind presented to the ER with increased lethargy,dyspnea, increased cough, nausea vomiting, diarrhea, reported fevers, not eating well, right upper quadrant abdominal pain for about the last 3 weeks. No reported aspiration. T-max 101, WBC 60, platelets 1022, hemoglobin 11.1, alk phos 315. Abdominal series reported no intestinal obstruction or pneumoperitoneum, normal fecal pattern, right pleural effusion, right pulmonary consolidation, possible right sided di aphragmatic hernia. Abdominal ultrasound limited study, reported echogenic bile with no dilated ducts, no gallstones . 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 EKG reported sinus tachycardia. Chest x-ray reports redemonstration of left-sided hydropneumothorax,Similar to CT, right middle lower lobe consolidation likely related to pneumonia, left basilar opacity possibly related to atelectasis or infiltrate. Initiated on IV fluids, vancomycin and cefepime. Unable to keep oxygen on, currently maintaining O2 sats in the low 90s on room air. Ativan administered for anxiety/agitation. Admitted to ICU. If the patient is being obtained from staff, chart as patient nonverbal. Pulmonary and interventional radiology consulted. 11/13/2018 Yesterday underwent diagnostic ultrasound-guided thoracentesis, minimal fluid obtained, cultures sent/pending. Tolerated procedure well. Maintained on vancomycin and Zosyn, currently afebrile, T-max 100, WBC decreased to 47. Respiratory rate with significant coughing spells, followed by agitation, which have improved this morning. Chest x-ray this morning reporting mild improving aeration of the right lung, right chest consolidation / hydropneumothorax persists, and left basilar opacities, possible atelectasis versus infiltrate. Hemoglobin 8.9. Desats with pulling off mask.Caregiver at bedside around the clock, attempting to facilitate patient receiving O2 via nonrebreather, maintaining sats in the low 90s. Less tachycardic today. More calm this morning, eating well without difficulty. No nausea vomiting or diarrhea. 11/14/2018. Better night, oxygen weaned off currently maintaining O2 sats in the 90s on room air with mask on standby. Chest x-ray reporting improving right lung aeration with residual hydropneumothorax, increasing left basilar consolidation, possibly atelectasis versus infiltrate. Minimal agitation. Telemetry sinus rhythm. Afebrile, wbc's continue trending down, currently 36.8, preliminary cultures negative. Vancomycin redosed and continues on Zosyn as well. Currently presenting with no cough, no nausea vomiting or diarrhea. Good diet intake. 11/15/2018 caregiver at bedside, minimal sleep during the night, patient was agitated. Currently sleeping this morning, comfortably. Maintained on Zosyn IV antibiotics. Afebrile, WBC down to 32.5. Chest x-ray reporting no significant change. Anaerobic wound culture reporting alpha hemolytic streptococcus. Vital signs stable, maintaining O2 sats in the 90s on room air. 11/16/2018: Patient is been transferred to the regular floor. He is doing well. His white count continues to trend down. Lung sounds are improved. He is acting like his normal self. He and a multifactorial pneumonia with L for hemolytic strep. He is been cleared by pulmonology for discharge will go home. Unfortunately, his primary caregiver, his mother, and yesterday. His sisters will help continue to care for him. Patient Condition at Discharge: Fair Plan - Discharge Summary Discharge Rx Participant: No New Discharge Prescriptions: New Amoxicillin/Potassium Clav [Augmentin 875-125 Tablet] 1 tab PO Q12HR #14 tab guaiFENesin 200 mg PO Q4H PRN 7 Days #1 bottle PRN Reason: Cough Continue Acetaminophen Tab [Tylenol] 650 mg PO Q4H PRN PRN Reason: Pain Discharge Medication List Acetaminophen Tab [Tylenol] 650 mg PO Q4H PRN 11/11/18 [History] Amoxicillin/Potassium Clav [Augmentin 875-125 Tablet] 1 tab PO Q12HR #14 tab 11/16/18 [Rx] guaiFENesin 200 mg PO Q4H PRN 7 Days #1 bottle 11/16/18 [Rx] Follow up Appointment(s)/Referral(s): Justin Rizvi Jr, DO [Primary Care Provider] - 3 Days Herminia Moncada MD [STAFF PHYSICIAN] - 1 Week Activity/Diet/Wound Care/Special Instructions: Remain out of program until following up in the office. Discharge Disposition: HOME SELF-CARE
[2018-11-16 12:53] LABS: Band Neutrophils % 2 %; Eosinophils # (M) 0.57 k/uL (0-0.7); Lymphocytes # (M) 3.99 k/uL (1.0-4.8); Metamyelocytes # (M) 0.86 k/uL (0); Metamyelocytes % 3 %; Monocytes # (M) 1.43 k/uL (0-1.0); Myelocytes # (M) 0.86 k/uL (0); Myelocytes % 3 %; Neutrophils % (M) 72 %; Nucleated Red Blood Cells 0 /100 WBC (0-0); Promyelocytes # (M) 0.29 k/uL (0); Promyelocytes % 1 %; Total Cells Counted 200
[2018-11-16 12:57] LABS: Polychromasia Present
[2018-11-16 16:44] VITALS: PULSE 102
== END 2018-11-16 16:47 | disposition home or self-care (01) | DRG 871 ==
LOC: EC 14:49 → EEVIPCON 14:49 → 2SICU 22:07 → 3NMEDONC 11-15 19:08
PROVIDERS: ADMIT Family Medicine; ATTEND Family Medicine
PROC: 0W993ZX Drainage of Right Pleural Cavity, Percutaneous Approach, Diagnostic (ICD-10-PCS; principal; 2018-11-12)
DX: A41.9 Sepsis, unspecified organism (principal); J86.9 Pyothorax without fistula; J96.01 Acute respiratory failure with hypoxia; J13 Pneumonia due to Streptococcus pneumoniae; G93.41 Metabolic encephalopathy; J94.2 Hemothorax; J91.8 Pleural effusion in other conditions classified elsewhere; E87.1 Hypo-osmolality and hyponatremia; F84.9 Pervasive developmental disorder, unspecified; J98.11 Atelectasis; Z66 Do not resuscitate; D47.3 Essential (hemorrhagic) thrombocythemia; Q90.9 Down syndrome, unspecified; D64.9 Anemia, unspecified; F41.9 Anxiety disorder, unspecified; K58.9 Irritable bowel syndrome, unspecified; K21.9 Gastro-esophageal reflux disease without esophagitis; H26.9 Unspecified cataract; H54.8 Legal blindness, as defined in USA; R32 Unspecified urinary incontinence; Z98.890 Other specified postprocedural states; Z83.3 Family history of diabetes mellitus; Z80.1 Family history of malignant neoplasm of trachea, bronchus and lung
CPT/HCPCS: 32555; 36415; 71045; 71260; 74022; 74177; 76700; 80048; 80053; 80202; 81001; 83605; 83615; 83690; 83735; 84100; 84155; 85025; 85730; 87040; 87070; 87075; 87205; 89050; 93005; 94640; 96365; 96366; 96367; 96372; 96374; 99285

== ENCOUNTER → 2019-01-22 | Outpatient (CLI) | payer MEDICARE, OTHER ==
--- NOTE | 2019-01-22 16:04 | CT ---
EXAMINATION TYPE: CT ChestAbdPelvis w con DATE OF EXAM: 01/22/2019 COMPARISON: CT chest abdomen and pelvis November 11, 2018 HISTORY: Cough, abnormal clinical findings. Underlying Down's syndrome noted. CT DLP: 890 mGycm. Automated Exposure Control for Dose Reduction was Utilized. CONTRAST: CT scan of the thorax, abdomen and pelvis is performed without oral but with IV Contrast, patient inj ected with 100 mL of Isovue M300. Oral contrast not given as patient refused. FINDINGS: Exam is suboptimal due to significant patient motion. LUNGS: There is persistent loculated anterior right pleural fluid collection measuring 4.8 x 2.4 cm i mage 49 diminished in size from prior. There is interval resolution of the additional right-sided ple ural fluid collections. There is fairly thick wall noted. There is adjacent consolidation and/or atel ectasis present. Left lung is predominantly clear. There is patchy bibasilar atelectasis and/or linea r scarring. MEDIASTINUM: There are no greater than 1 cm hilar or mediastinal lymph nodes. No cardiomegaly or pe ricardial effusion is seen. LIVER/GB: Somewhat contracted gallbladder seen best on coronal image 25. PANCREAS: No significant abnormality is seen. SPLEEN: No significant abnormality is seen. ADRENALS: No significant abnormality is seen. KIDNEYS: Delayed images either not performed are not sent to the PACS system. BOWEL: Suboptimal evaluation without dedicated mesenteric contrast. Prominent fecal material in the r ectum is present. No suspicious small bowel dilatation. GENITAL ORGANS: No gross abnormality seen. LYMPH NODES: No greater than 1cm abdominal or pelvic lymph nodes are appreciated. OSSEOUS STRUCTURES: Coxa valga deformity bilateral hips. Severe narrowing and sclerosis L1-L2 and L2- L3 levels. Underlying scoliotic curvature in the thoracic spine. OTHER: No significant additional abnormality is seen. IMPRESSION: 1. Suboptimal study. Improving right-sided pleural fluid collections. Decreased but persistent mid a nterolateral right pleural fluid collection with thick wall could reflect empyema. Correlate clinical ly. 2. [id number] rectal fecal stasis. Overall nonobstructive bowel gas pattern.
== END ==
LOC: RADCTMAIN 13:23 → EEVIPCON 13:23
PROVIDERS: ATTEND Family Medicine
DX: J90 Pleural effusion, not elsewhere classified (principal); K59.8 Other specified functional intestinal disorders
CPT/HCPCS: 71260; 74177; Q9967